=== PATIENT | female | born 1965 | race Caucasian/White ===

== ENCOUNTER 2018-03-22 08:57 | Outpatient (CLI) | payer BC, MEDICARE ==
[~2018-03-22] VITALS: Ht 165.1 cm; Wt 100.5 kg
[~2018-03-22 08:57] MED LIST: Oxycodone Hcl/Acetaminophen PO; PREG75CA PO; ROPI0.256 PO; TRAM50TA2 PO; TRAZ-144 PO
[2018-03-22] MEDS ORDERED: PREG75CA PO (09:10)
[2018-03-22] MEDS ORDERED: ROPI4TAB3 PO (09:10)
[2018-03-22 09:13] VITALS: BP 121/76
== END 2018-03-22 09:24 | disposition home or self-care (01) ==
LOC: PREOP 08:57
PROVIDERS: ATTEND Orthopaedic Surgery
DX: Z01.818 Encounter for other preprocedural examination (principal); Z11.2 Encounter for screening for other bacterial diseases
CPT/HCPCS: 87081

== ENCOUNTER 2018-03-29 09:15 | Day surgery (SDC) | payer BC, MEDICARE ==
[~2018-03-29] VITALS: Ht 165.1 cm; Wt 100.5 kg
[~2018-03-29 09:15] MED LIST changes: +ROPI4TAB3 PO
[2018-03-29 09:25] VITALS: BP 135/78
[2018-03-29] MEDS ORDERED: ceFAZolin 2 GM IV Premixed 50 ML IV ONE (09:30)
[2018-03-29] MEDS: LACTATED RINGERS 1,000 ML IV PRN ×2 (09:30→11:52)
--- OUTSIDE RECORDS SUMMARY | 2018-03-29 09:49 | XMS REPORT | Clinical Summary ---
Author Author [facility] Organization [facility] Address Unknown Phone Unavailable Care Team Providers Care Stock Layer Name Role Phone Daljit Perez MD Unavailable Kurt Navas MD PCP Source Comments Some departments are not documenting in the electronic medical record. If you do not see the information that you expected, contact Release of Information in the Health Information Management department at [phone] for further assistance in locating additional records.[facility] Allergies No Known Allergies Current Medications Prescription Sig. Disp. Refills Start End Date Status Date pregabalin (LYRICA) 25 mg Take 25 mg by mouth three Active capsule times daily. tapentadol ER (NUCYNTA Take 150 mg by mouth Active ER) 150 mg tablet every 12 hours naloxegol (MOVANTIK) 25 Take by mouth daily. Active mg tablet SULFAMETHOXAZOLE/TRIMETHO Take 100 mg by mouth. Active PRIM (BACTRIM PO) rOPINIRole (REQUIP) 2 mg Take 4 mg by mouth three Active tablet times daily. Active Problems Not on file Family History Relation Name Status Comments Father Social History Tobacco Use Types Packs/Day Years Used Date Never Smoker Alcohol Use Drinks/Week oz/Week Comments No 0 Standard 0.0 drinks or equivalent Sex Assigned at Date Recorded Not on file Last Filed Vital Signs Vital Sign Reading Time Taken Blood Pressure 128/79 03/10/2017 9:22 AM CDT Pulse 89 03/10/2017 9:22 AM CDT Temperature - - Respiratory Rate - - Oxygen Saturation 95% 03/10/2017 9:22 AM CDT Inhaled Oxygen - - Concentration Weight 95.3 kg (210 lb) 03/10/2017 9:22 AM CDT Height 165.1 cm (5' 5") 03/10/2017 9:22 AM CDT Body Mass Index 34.95 03/10/2017 9:22 AM CDT Plan of Treatment Health Maintenance Due Date Last Done Comments PHYSICAL (COMPREHENSIVE) 1974 EXAM PERTUSSIS VACCINE 1978 HIV SCREENING 1982 TETANUS VACCINE 1984 CERVICAL CANCER SCREENING 1997 BREAST CANCER SCREENING 2007 COLORECTAL CANCER 2017 SCREENING INFLUENZA VACCINE 07/12/2018 Results Not on filefrom Last 3 Months
--- OUTSIDE RECORDS SUMMARY | 2018-03-29 09:51 | XMS REPORT ---
Author Author Kurt Navas [facility] Address [address] [place] [id number] Care Team Providers Care Rail Car Driver Name Role Phone Kurt Navas PCP Unavailable Allergies and Adverse Reactions Name Reaction Notes NO KNOWN DRUG ALLERGIES Plan of Treatment Not available. Medications Active Name Start Date Estimated Completion Date SIG Comments Requip oral hydrocodone-acetaminophen 5-325 mg oral tablet 07/25/2015 take 1 tablet by oral route every 6 hours as needed for pain Questran 4 gram oral powder in packet 11/21/2015 take 1 packet (4 gram) dissolved in 2 to 6 ounces of water or noncarbonated beverage by oral route 2 times per day ropinirole 2 mg oral tablet 12/04/2015 05/02/2016 take 1-2 tablets by oral route once Lyrica 75 mg oral capsule 12/10/2015 06/07/2016 take 1 capsule (75 mg) by oral route 2 times per day for 30 days Name Start Date Expiration Date SIG Comments Levaquin 500 mg oral tablet 01/17/2010 01/31/2010 take 1 tablet (500 mg) by oral route once daily for 7 days Xanax 0.5 mg oral tablet 02/11/2010 take 1 tablet (0.5 mg) by oral route 3 times per day Medrol (Rashad) 4 mg oral tablets,dose pack 05/20/2010 05/30/2010 take as directed for 5 days Flexeril 10 mg oral tablet 05/20/2010 take 1 tablet by oral route 3 times a day as needed Neurontin 300 mg oral capsule 08/19/2010 09/18/2010 1-2 po qid Titrate as directed on calender Flexeril 10 mg oral tablet 08/19/2010 09/18/2010 1-2 po q hs Start at 10 mg increase by 5 mg q week up to 20 mg Medrol (Rashad) 4 mg oral tablets,dose pack 02/18/2011 02/28/2011 take as directed for 5 days Zithromax Z-Rashad 250 mg oral tablet 02/18/2011 02/28/2011 take 2 tablets (500 mg) by oral route once daily for 1 day then 1 tablet (250 mg) by oral route once daily for 4 days gabapentin 300 mg oral capsule 07/14/2011 08/13/2011 TAKE 1 OR 2 CAPSULES BY MOUTH FOUR TIMES DAILY . TITRATE DIRECTED ON CALDENER Dulcolax (bisacodyl) 10 mg rectal suppository 10/20/2011 insert 1 suppository (10 mg) by rectal route once daily as needed for constipation hydrocodone-acetaminophen 5-500 mg oral tablet 09/01/2012 09/11/2012 take 1 tablet by oral route every 4 hours as needed for pain for 10 days Bentyl 20 mg oral tablet 09/15/2012 09/25/2012 take 1 tablet (20 mg) by oral route 4 times per day - with meals and at bedtime Levbid 0.375 mg oral tablet extended release 12 hr 09/21/2012 10/05/2012 take 1 tablet (0.375 mg) by oral route every 12 hours for 14 days Zithromax Z-Rashad 250 mg oral tablet 12/09/2012 12/14/2012 take 2 tablets (500 mg ) by oral route once daily for 1 day then 1 tablet (250 mg) by oral route once daily for 4 days Medrol (Rashad) 4 mg oral tablets,dose pack 07/18/2013 07/30/2013 take as directed for 6 days Zithromax Z-Rashad 250 mg oral tablet 07/18/2013 07/28/2013 take 2 tablets (500 mg) by oral route once daily for 1 day then 1 tablet (250 mg) by oral route once daily for 4 days Levaquin 500 mg oral tablet 08/21/2014 08/28/2014 take 1 tablet (500 mg) by oral route once daily for 7 days ropinirole 0.25 mg oral tablet 10/06/2014 11/05/2014 take 1 tablet (0.25 mg) by oral route 1-3 hours before bedtime for 30 days hydrocodone-acetaminophen 5-325 mg oral tablet take 1 tablet by oral route every 4-6 hours as needed for pain Valium 5 mg oral tablet may take 1 tablet every 6hr prn Bactrim DS 800-160 mg oral tablet 12/12/2014 12/19/2014 take 1 tablet by oral route every 12 hours for 7 days prednisone 20 mg oral tablet 12/12/2014 12/19/2014 take 2 tablets (40 mg) by oral route once daily for 7 days cyclobenzaprine 10 mg oral tablet 05/30/2015 06/13/2015 take 1 tablet by oral route once a day (at bedtime) for 14 days azithromycin 250 mg oral tablet 09/07/2015 09/14/2015 take 2 tablets (500 mg ) by oral route once daily x 7 days promethazine-codeine 6.25-10 mg/5 mL oral syrup 09/07/2015 09/14/2015 take 5 milliliters by oral route every 4 hours as needed, not to exceed 30 mL in 24 hours for 7 days Discontinued Name Start Date Discontinued Date SIG Comments Neurontin 600 mg oral tablet 02/11/2010 take 1 tablet (600 mg) by oral route 3 times per day Zocor 20 mg oral tablet 08/13/2010 take 1 tablet (20 mg) by oral route once daily in the evening Tricor 145 mg oral tablet 08/13/2010 take 1 tablet (145 mg) by oral route once daily hydrocodone-acetaminophen 7.5-325 mg oral tablet 08/13/2010 take 1 tablet by oral route every 6 hours as needed for pain ibuprofen 200 mg oral capsule 07/25/2015 As needed Nexium 40 mg oral capsule,delayed release(DR/EC) 10/24/2010 08/11/2012 take 1 capsule (40 mg) by oral route once daily Percocet 10-325 mg oral tablet 10/28/2010 04/15/2011 take 1-2 tablets by oral route every 4 hours Amrix 15 mg oral capsule,extended release 24hr 03/13/2011 04/15/2011 TAKE 1 CAPSULE BY MOUTH DAILY Nucynta 100 mg oral tablet 04/15/2011 08/11/2012 take 1/2-1 tablet (100 mg) by oral route every 6 hours as needed prednisone 20 mg oral tablet 04/15/2011 08/11/2012 take 2 tablets by mouth x4 days then 1 tablet by mouth x4 days then 1/2 tablet by mouth x4 days. Lortab 10-500 mg oral tablet 04/22/2011 08/11/2012 take 1 tablet by oral route every 4 hours as needed for pain oxycodone-acetaminophen 7.5-325 mg oral tablet 08/11/2012 take 1 tablet by oral route every 4 hours as needed for pain Bactrim DS 800-160 mg oral tablet 08/11/2012 take 2 tablets by oral route Keflex 500 mg oral capsule 08/11/2012 take 1 capsule (500 mg) by oral route every 12 hours Lidoderm 5 % topical adhesive patch,medicated 12/12/2014 apply 1 patch by transdermal route once daily (May wear up to 12hours.) Amitiza 8 mcg oral capsule 10/20/2011 08/11/2012 take 1 capsule by oral route 2 times a day Reglan 10 mg oral tablet 08/05/2012 08/11/2012 take 1 tablet (10 mg) by oral route 4 times per day 30 minutes before meals and at bedtime Mobic Oral 15 mg Oral tablet 12/12/2014 take 1 tablet (15 mg) by oral route once daily prn Flagyl 500 mg oral tablet 09/15/2012 09/28/2012 take 1 tablet (500 mg) by oral route 3 times per day Lomotil Oral 2.5-0.025 mg Oral tablet 10/18/2012 one tab q 4 hrs prednisone Oral 11/01/2012 take as directed Symbicort 160-4.5 mcg/actuation inhalation HFA aerosol inhaler 07/18/20132014 inhale 2 puffs by inhalation route 2 times per day in the morning and evening promethazine-codeine 6.25-10 mg/5 mL oral syrup 07/18/2013 04/10/2014 take 5 milliliters by oral route every 6 hours as needed, not to exceed 30 mL in 24 hours Percocet 5-325 mg oral tablet 11/28/2013 12/12/2014 take 1 tablet by oral route every 6 hours ropinirole 1 mg oral tablet 03/29/2015 05/04/2015 take 1 tablet (1 mg) by oral route 1-3 hours before bedtime for 90 days Neupro 2 mg/24 hour transdermal patch 24 hour 05/04/2015 07/25/2015 apply 1 patch (2 mg) by transdermal route once daily . Do not apply to same area more than once every 14 days. for 30 days Problem List Description Status Onset Heart disease Active Hypertension Active Vital Signs Date Time BP-Sys(mm[Hg] BP-Sarah(mm[Hg]) HR(bpm) RR(rpm) Temp WT HT HC BMI BSA BMI Percentile O2 Sat(%) 12/04/2015 3:49:00 PM 128 mmHg 86 mmHg 104 bpm 18 rpm 98.7 F 211 lbs 65 in 35.11 kg/m2 2.10 m2 94 % 11/21/2015 10:55:00 AM 132 mmHg 78 mmHg 88 bpm 18 rpm 99.3 F 211 lbs 65 in 35.1119 kg/m 2.0951 m 85 % 09/07/2015 5:19:00 PM 130 mmHg 80 mmHg 98 bpm 20 rpm 98.7 F 211 lbs 65 in 35.11 kg/m2 2.10 m2 98 % 07/25/2015 2:34:00 PM 138 mmHg 78 mmHg 91 bpm 18 rpm 97.3 F 213.25 lbs 65 in 35.4863 kg/m 2.1062 m 98 % 05/29/2015 9:19:00 AM 140 mmHg 80 mmHg 78 bpm 18 rpm 96.7 F 208 lbs 65 in 34.61 kg/m2 2.08 m2 98 % 03/29/2015 3:18:00 PM 110 mmHg 82 mmHg 89 bpm 18 rpm 97.9 F 209 lbs 65 in 34.7791 kg/m 2.0851 m 95 % 12/12/2014 9:47:00 AM 124 mmHg 78 mmHg 96 bpm 18 rpm 98.8 F 213 lbs 65 in 35.44 kg/m2 2.10 m2 08/21/2014 9:52:00 AM 128 mmHg 62 mmHg 113 bpm 18 rpm 99.2 F 222.375 lbs 65 in 37.0048 kg/m 2.1508 m 97 % 08/08/2014 10:48:00 AM 128 mmHg 72 mmHg 88 bpm 18 rpm 97.6 F 222 lbs 65 in 36.94 kg/m2 2.15 m2 04/24/2014 10:32:00 AM 124 mmHg 72 mmHg 80 bpm 18 rpm 98.4 F 216 lbs 65 in 35.9439 kg/m 2.1197 m 04/10/2014 9:30:00 AM 118 mmHg 72 mmHg 88 bpm 18 rpm 98.2 F 217 lbs 65 in 36.11 kg/m2 2.12 m2 11/28/2013 10:02:00 AM 108 mmHg 66 mmHg 94 bpm 18 rpm 98.1 F 211.25 lbs 65 in 35.1535 kg/m 2.0963 m 98 % 07/18/2013 8:55:00 AM 130 mmHg 70 mmHg 90 bpm 20 rpm 98.4 F 205 lbs 65 in 34.11 kg/m2 2.07 m2 98 % 03/01/2013 8:36:00 AM 128 mmHg 68 mmHg 68 bpm 18 rpm 98.7 F 203.25 lbs 65 in 33.8222 kg/m 2.0562 m 11/01/2012 1:31:00 PM 110 mmHg 60 mmHg 92 bpm 18 rpm 96.8 F 206 lbs 65 in 34.28 kg/m2 2.07 m2 98 % 10/18/2012 2:25:00 PM 120 mmHg 70 mmHg 76 bpm 18 rpm 97 F 205.375 lbs 65 in 34.1758 kg/m 2.067 m 98 % 09/28/2012 1:31:00 PM 110 mmHg 70 mmHg 80 bpm 18 rpm 97.5 F 205.375 lbs 65 in 34.18 kg/m2 2.07 m2 99 % 09/15/2012 11:00:00 AM 140 mmHg 70 mmHg 75 bpm 18 rpm 97.4 F 204.25 lbs 65 in 33.9886 kg/m 2.0613 m 99 % 09/08/2012 10:04:00 AM 110 mmHg 70 mmHg 75 bpm 18 rpm 96.8 F 203 lbs 65 in 33.78 kg/m2 2.05 m2 97 % 09/01/2012 10:24:00 AM 104 mmHg 62 mmHg 88 bpm 16 rpm 97.5 F 205 lbs 65 in 34.1134 kg/m 2.0651 m 08/17/2012 1:17:00 PM 120 mmHg 70 mmHg 78 bpm 18 rpm 96.9 F 206 lbs 65 in 34.28 kg/m2 2.07 m2 98 % 08/11/2012 10:24:00 AM 110 mmHg 80 mmHg 99 bpm 18 rpm 96.5 F 206 lbs 65 in 34.2798 kg/m 2.0701 m 97 % 08/09/2012 9:16:00 AM 146 mmHg 84 mmHg 88 bpm 20 rpm 98.4 F 206 lbs 65 in 34.28 kg/m2 2.07 m2 08/05/2012 3:20:00 PM 120 mmHg 78 mmHg 80 bpm 18 rpm 98.4 F 207 lbs 65 in 34.4462 kg/m 2.0751 m 07/29/2012 1:37:00 PM 128 mmHg 82 mmHg 80 bpm 18 rpm 98.2 F 205 lbs 65 in 34.11 kg/m2 2.07 m2 10/20/2011 10:46:00 AM 128 mmHg 80 mmHg 118 bpm 18 rpm 98 F 207 lbs 65 in 34.4462 kg/m 2.0751 m 04/22/2011 9:16:00 AM 126 mmHg 80 mmHg 80 bpm 20 rpm 98.1 F 212 lbs 65 in 35.28 kg/m2 2.10 m2 04/15/2011 8:52:00 AM 130 mmHg 72 mmHg 88 bpm 20 rpm 97.2 F 212 lbs 02/18/2011 9:06:00 AM 132 mmHg 78 mmHg 92 bpm 20 rpm 97.6 F 215 lbs 12/05/2010 8:04:00 AM 118 mmHg 78 mmHg 88 bpm 98 F 215 lbs 11/04/2010 9:19:00 AM 122 mmHg 78 mmHg 88 bpm 96.3 F 214.562 lbs 10/28/2010 10:07:00 AM 74 mmHg 20 rpm 99.8 F 218 lbs 10/24/2010 10:29:00 AM 128 mmHg 80 mmHg 106 bpm 20 rpm 98.6 F 215.25 lbs 94 % 10/01/2010 8:30:00 AM 112 mmHg 70 mmHg 88 bpm 16 rpm 10/01/2010 8:07:00 AM 112 mmHg 78 mmHg 88 bpm 98 F 212 lbs 08/19/2010 8:44:00 AM 118 mmHg 78 mmHg 80 bpm 16 rpm 97.2 F 209.187 lbs 07/09/2010 2:52:00 PM 124 mmHg 78 mmHg 92 bpm 20 rpm 98.9 F 208 lbs 05/20/2010 2:04:00 PM 122 mmHg 80 mmHg 88 bpm 96.2 F 206 lbs 02/11/2010 2:00:00 PM 150 mmHg 88 mmHg 84 bpm 20 rpm 98.3 F 212 lbs 01/17/2010 9:10:00 AM 108 mmHg 78 mmHg 76 bpm 20 rpm 97.5 F 212 lbs Social History Name Description Comments Housing Lives in a house in [place], [place] Lives with spouse disabeled High school graduate Grown Children Alcohol Current - status unknown Denies illicit substance abuse Tobacco Former smoker Did not serve in History of Procedures Date Ordered Description Order Status 07/25/2015 12:00 AM RADEX SPINE LUMBOSACRAL 2/3 VIEWS Returned 09/07/2015 12:00 AM THER/PROPH/DIAG INJ SC/IM Reviewed 09/07/2015 12:00 AM Decadron, Per 1 Mg [facility]# [address]-75 Reviewed 09/07/2015 12:00 AM Depo-Medrol 40mg Reviewed 10/20/2011 12:00 AM Phenergan 50 Mg Im [id number] Reviewed 08/05/2012 12:00 AM X-RAY EXAM OF ABDOMEN Reviewed 08/09/2012 12:00 AM COMPLETE CBC W/AUTO DIFF WBC Reviewed 08/09/2012 12:00 AM COMPREHEN METABOLIC PANEL Reviewed 08/09/2012 12:00 AM ASSAY OF AMYLASE Reviewed 08/09/2012 12:00 AM ECHO EXAM OF ABDOMEN Reviewed 08/11/2012 12:[address] ABDOMEN W/O & W/DYE Reviewed 08/11/2012 12:[address] PELVIS W/O & W/DYE Reviewed 09/21/2012 12:00 AM CULTURE OTHR SPECIMN AEROBIC Returned 02/11/2010 12:00 AM COMPLETE CBC W/AUTO DIFF WBC Reviewed 02/11/2010 12:00 AM COMPREHEN METABOLIC PANEL Reviewed 02/11/2010 12:00 AM LIPID PANEL Reviewed 11/28/2013 12:00 AM X-RAY EXAM OF ANKLE Reviewed 10/01/2010 12:00 AM DRAIN/INJ JOINT/BURSA W/O US Reviewed 10/01/2010 12:00 AM Kenalog 40 Mg Im-[facility]#9586-6079-22 Lot #[id number] Exp 2011 Reviewed 10/01/2010 12:00 AM HOT OR COLD PACKS THERAPY Reviewed 10/01/2010 12:00 AM Lidocaine Injection [facility] [address]-90 , Lot # [id number] Exp 03/12/2012 Reviewed 10/01/2010 12:00 AM DRAIN/INJ JOINT/BURSA W/O US Reviewed 04/10/2014 12:00 AM Kenalog 40 Mg Im/C'abida Reviewed 04/10/2014 12:00 AM Rocephin 1 gram [facility]#5806-9493-50 Reviewed 10/24/2010 12:00 AM COMPLETE CBC W/AUTO DIFF WBC Reviewed 10/24/2010 12:00 AM COMPREHEN METABOLIC PANEL Reviewed 10/24/2010 12:00 AM LIPID PANEL Reviewed 10/28/2010 12:00 AM X-RAY EXAM OF HIP Reviewed 12/05/2010 12:00 AM X-RAY EXAM OF HIP Reviewed 12/05/2010 12:00 AM ROUTINE VENIPUNCTURE Reviewed 12/05/2010 12:00 AM COMPLETE CBC W/AUTO DIFF WBC Reviewed 12/05/2010 12:00 AM COMPREHEN METABOLIC PANEL Reviewed 12/05/2010 12:00 AM LIPID PANEL Reviewed 08/08/2014 12:00 AM X-RAY EXAM OF HAND Reviewed 04/22/2011 12:00 AM X-RAY EXAM KNEE 4 OR MORE Reviewed 05/29/2015 12:00 AM COMPLETE CBC W/AUTO DIFF WBC Returned 05/29/2015 12:00 AM URNLS DIP STICK/TABLET RGNT AUTO W/O MICROSCOPY Returned Results Summary Data and Description Results 02/25/2010 11:25 AM VANC PEAK 28.70 ug/mL 02/25/2010 7:10 PM VANC TROUGH 9.10 mg/L 03/18/2010 8:49 AM TRIGLYCERIDES 272.0 mg/dLCHOLESTEROL 166.0 mg/dLHDL 29.0 mg/ dLLDL (CALC) 83.0 mg/dLGLUCOSE 100.0 mg/dLSODIUM 140.0 mmol/LPOTASSIUM 4.30 mmol /LCHLORIDE 105.0 mmol/LCO2 25.0 mmol/LBUN 12.0 mg/dLCREATININE 0.80 mg/dLSGOT/ AST 19.0 IU/LSGPT/ALT 21.0 IU/LALK PHOS 91.0 IU/LTOTAL PROTEIN 7.0 g/dLALBUMIN 4.30 g/dLTOTAL BILI 0.30 mg/dLCALCIUM 9.30 mg/dLeGFR >60 mL/min/1.73 m2WBC 7.7 RBC 4.39 HGB 13.60 g/dLHCT 41.40 %MCV 94.0 fLMCH 31.0 pgMCHC 32.90 g/dLRDW CV 13.20 %MPV 9.60 fLPLT 298 %NEUT 58.40 %%LYMP 26.30 %%MONO 13.20 %%EOS 1.30 %% BASO 0.80 %#NEUT 4.51 #LYMP 2.03 #MONO 1.02 #EOS 0.10 #BASO 0.06 WBC 7.6 RBC 4.34 HGB 13.60 g/dLHCT 41.0 %MCV 95.0 fLMCH 31.30 pgMCHC 33.20 g/dLRDW CV 13.20 %MPV 9.50 fLPLT 276 %NEUT 59.0 %%LYMP 27.50 %%MONO 11.40 %%EOS 1.30 %%BASO 0.80 %#NEUT 4.51 #LYMP 2.10 #MONO 0.87 #EOS 0.10 #BASO 0.06 10/01/2010 8:15 AM Amount used 80 Joint/Area RT knee 12/05/2010 8:50 AM TRIGLYCERIDES 385.0 mg/dLCHOLESTEROL 239.0 mg/dLHDL 29.0 mg/ dLLDL (CALC) 133.0 mg/dLWBC 10.5 RBC 4.69 HGB 14.80 g/dLHCT 44.0 %MCV 94.0 fLMCH 31.60 pgMCHC 33.60 g/dLRDW CV 12.80 %MPV 10.30 fLPLT 274 %NEUT 63.20 %% LYMP 27.20 %%MONO 7.90 %%EOS 1.10 %%BASO 0.60 %#NEUT 6.63 #LYMP 2.85 #MONO 0.83 #EOS 0.12 #BASO 0.06 GLUCOSE 100.0 mg/dLSODIUM 138.0 mmol/LPOTASSIUM 4.30 mmol/ LCHLORIDE 103.0 mmol/LCO2 23.0 mmol/LBUN 14.0 mg/dLCREATININE 0.80 mg/dLSGOT/ AST 13.0 IU/LSGPT/ALT 11.0 IU/LALK PHOS 126.0 IU/LTOTAL PROTEIN 6.80 g/ dLALBUMIN 4.40 g/dLTOTAL BILI 0.30 mg/dLCALCIUM 9.20 mg/dLeGFR >60 mL/min/1.73 m2 08/09/2012 10:00 AM GLUCOSE 100.0 mg/dLSODIUM 142.0 mmol/LPOTASSIUM 5.40 mmol/ LCHLORIDE 108.0 mmol/LCO2 26.0 mmol/LBUN 10.0 mg/dLCREATININE 0.90 mg/dLSGOT/ AST 21.0 IU/LSGPT/ALT 21.0 IU/LALK PHOS 121.0 IU/LTOTAL PROTEIN 6.70 g/ dLALBUMIN 4.30 g/dLTOTAL BILI 0.30 mg/dLCALCIUM 9.70 mg/dLeGFR 60 AMYLASE 44 IU/ LWBC 9.0 RBC 4.54 HGB 14.20 g/dLHCT 42.10 %MCV 93.0 fLMCH 31.30 pgMCHC 33.70 g/ dLRDW CV 13.20 %MPV 10.10 fLPLT 277 %NEUT 57.60 %%LYMP 33.10 %%MONO 6.30 %%EOS 2.30 %%BASO 0.70 %#NEUT 5.20 #LYMP 2.99 #MONO 0.57 #EOS 0.21 #BASO 0.06 09/22/2012 8:52 AM WBC STOOL NO WBC SEEN C DIFFICILE NEGATIVE -- C DIFF TOXIN NOT DETECTED 10/07/2012 9:30 AM C DIFFICILE NEGATIVE -- C DIFF TOXIN NOT DETECTED 05/29/2015 9:52 AM COLOR YELLOW APPEARANCE CLEAR SPEC GRAV <=1.005 pH 6.0 PROTEIN NEGATIVE GLUCOSE NEGATIVE mg/dLKETONE NEGATIVE BILIRUBIN NEGATIVE BLOOD NEGATIVE NITRITE NEGATIVE LEUK SCREEN NEGATIVE WBC 9.6 RBC 4.80 HGB 15.50 g/ dLHCT 46.30 %MCV 97.0 fLMCH 32.30 pgMCHC 33.50 g/dLRDW CV 13.0 %MPV 10.10 fLPLT 266 %NEUT 58.70 %%LYMP 32.30 %%MONO 7.0 %%EOS 1.40 %%BASO 0.60 %#NEUT 5.62 # LYMP 3.09 #MONO 0.67 #EOS 0.13 #BASO 0.06 History Of Immunizations Not available. History of Past Illness Name Date of Onset Comments Hypertension Heart disease degenerative disc disease Hyperlipidemia, unspecified Jan 17 2010 9:12AM Otitis Media, Acute Jan 17 2010 9:12AM Hyperlipidemia, unspecified Feb 11 2010 2:07PM Depression and anxiety Feb 11 2010 2:07PM Insomnia, unspecified Feb 11 2010 2:07PM Osteoarthritis May 20 2010 2:07PM Low Back Pain Jul 09 2010 2:56PM Chronic Right Thoracic or Lumbosacral Radiculopathy s/p 8 back surgeries--with abnormal sensation and motor function RLE Aug 19 2010 8:45AM Paresthesia RLE >>LLE Aug 19 2010 8:45AM Muscle Spasm--Right calf Aug 19 2010 8:45AM Muscle weakness (generalized) RLE Aug 19 2010 8:45AM Right Foot Drop Aug 19 2010 8:45AM Gait Abnormality--due to radiculopathy and RLE weakness. Aug 19 2010 8:45AM Chronic Right Thoracic or Lumbosacral Radiculopathy s/p 8 back surgeries--with abnormal sensation and motor function RLE Oct 01 2010 8:08AM Gait Abnormality--due to radiculopathy and RLE weakness. Oct 01 2010 8:08AM Right knee pain Oct 01 2010 8:08AM Osteoarthrosis, lower leg Oct 01 2010 8:32AM Right knee pain Oct 01 2010 8:32AM Esophageal Reflux Oct 24 2010 10:35AM Hyperlipidemia, Mixed Oct 24 2010 10:35AM Pain in joint; Right Hip Oct 28 2010 10:09AM Chronic Right Thoracic or Lumbosacral Radiculopathy s/p 8 back surgeries--with abnormal sensation and motor function RLE Nov 04 2010 8:00AM Gait Abnormality--due to radiculopathy and RLE weakness. Nov 04 2010 8:00AM Right knee pain--improved after injection Nov 04 2010 8:00AM Chronic Right Thoracic or Lumbosacral Radiculopathy s/p 8 back surgeries--with abnormal sensation and motor function RLE Dec 05 2010 8:07AM Gait Abnormality--due to radiculopathy and RLE weakness. Dec 05 2010 8:07AM Coronary Artery Disease Dec 05 2010 8:47AM Hypertension Dec 05 2010 8:47AM Hypercholesterolemia Dec 05 2010 8:47AM Muscle, Ligament, And Fascia Disorder--snapping hip on the right. Dec 05 2010 8:07AM Upper Respiratory Infection Feb 18 2011 9:09AM Right knee pain Apr 15 2011 8:54AM Pain in joint; right knee Apr 22 2011 9:22AM Abdominal Pain Oct 20 2011 10:49AM Gastroenteritis, Noninfectious Oct 20 2011 12:03PM Gastroenteritis, Viral Jul 29 2012 1:43PM Abdominal Pain Aug 05 2012 3:23PM Abdominal Pain Aug 09 2012 9:20AM Abdominal Pain, Right Upper Quadrant Aug 11 2012 11:05AM Incisional Hernia: No Obstruction Or Gangrene Aug 11 2012 10:32AM Abdominal pain; epigastric Aug 11 2012 10:32AM Hernia, Incisional Aug 17 2012 1:20PM Postoperative Follow-Up Visit Sep 01 2012 10:29AM Constipation Sep 01 2012 10:29AM Postoperative Follow-Up Visit Sep 08 2012 10:09AM Diarrhea of presumed infectious origin Sep 15 2012 11:04AM Diarrhea Sep 21 2012 11:44AM Colon Cancer Screening Sep 28 2012 1:37PM Diarrhea Sep 28 2012 1:37PM Follow-up examination after endoscopy Oct 18 2012 2:31PM Diarrhea Oct 18 2012 2:31PM Colitis Oct 18 2012 2:31PM Irritable bowel syndrome Nov 01 2012 1:36PM Restless legs syndrome (RLS) Mar 01 2013 8:38AM Bronchitis, Acute Jul 18 2013 8:58AM Pain in joint; left ankle Nov 28 2013 10:08AM Sinusitis Apr 10 2014 9:33AM RLS (restless legs syndrome) Apr 24 2014 10:37AM Hand trauma Aug 08 2014 10:54AM Sinusitis Aug 21 2014 9:54AM Sinusitis Dec 12 2014 9:53AM RLS (restless legs syndrome) Dec 12 2014 9:53AM RLS (restless legs syndrome) Mar 29 2015 3:20PM Back pain May 29 2015 9:21AM Fall, initial encounter Jul 25 2015 2:36PM Right-sided low back pain without sciatica Jul 25 2015 2:36PM Bronchitis, Acute Sep 07 2015 5:20PM Cough Sep 07 2015 5:20PM Sinusitis, Acute Sep 07 2015 5:20PM Wheezing Sep 07 2015 5:20PM Gastroenteritis Nov 21 2015 10:59AM RLS (restless legs syndrome) Dec 04 2015 3:53PM Payers Insurance Name Company Name Plan Name Plan Number Policy Number Policy Group Number Start Date [facility] [id number] Saturday, 2009 Medicare Part A Medicare A Secondary [id number] N/A Medicare Part A Medicare Part A [id number] Thursday, 2011 Medicare Part B Medicare Secondary [id number] N/A History of Encounters Visit Date Visit Type Provider 12/04/2015 Office visit Kurt Navas MD 11/21/2015 Office visit Kurt Navas MD 09/07/2015 Office visit Charlotte Gilbert DRILLING FIELD OPERATOR 07/25/2015 Office visit Trina Deluna DRILLING FIELD OPERATOR 05/29/2015 Office visit Bernardino De La Garza DRILLING FIELD OPERATOR 03/29/2015 Office visit Kurt Navas MD 12/12/2014 Office visit Kurt Navas MD 08/21/2014 Office visit Kurt Navas MD 08/08/2014 Office visit Kurt Navas MD 04/24/2014 Office visit Kurt Navas MD 04/10/2014 Office visit Kurt Navas MD 11/28/2013 Office visit Kurt Navas MD 07/18/2013 Office visit Kurt Navas MD 03/01/2013 Office visit Kurt Navas MD 11/01/2012 Office visit Jin Duran MD 10/18/2012 Office visit Jin Duran MD 10/07/2012 Hospital Jin Duran MD 09/28/2012 Office visit Jin Duran MD 09/15/2012 Office visit Jin Duran MD 09/08/2012 Office visit Jin Duran MD 09/01/2012 Office visit Jin Duran MD 08/25/2012 Hospital Jin Duran MD 08/17/2012 Office visit Jin Duran MD 08/11/2012 Office visit Jin Duran MD 08/09/2012 Office visit Kutr Navas MD 08/05/2012 Office visit Kurt Navas MD 07/29/2012 Office visit Kurt Navas MD 01/05/2012 Hospital Thao Burkett MD 10/20/2011 Office visit Kurt Navas MD 05/12/2011 Hospital Thao Burkett MD 04/22/2011 Office visit Kurt Navas MD 04/15/2011 Office visit Trina Deluna APRN 02/18/2011 Office visit Kurt Navas MD 12/05/2010 Office visit Sandra Leal MD 11/04/2010 Office visit Sandra Leal MD 10/28/2010 Office visit Kurt Navas MD 10/24/2010 Office visit Kurt Navas MD 10/01/2010 Office visit Sandra Leal MD 08/19/2010 Office visit Sandra Leal MD 07/09/2010 Office visit Kurt Navas MD 05/20/2010 Office visit Kurt Navas MD 02/11/2010 Office visit Kurt Navas MD 01/17/2010 Office visit Kurt Navas MD
--- OUTSIDE RECORDS SUMMARY | 2018-03-29 09:52 | XMS REPORT ---
Author Author Kurt Navas [facility] Address [address] [place] [phone] Care Team Providers Care Ticker Maintainer Name Role Phone Kurt Navas PCP Unavailable Allergies and Adverse Reactions Name Reaction Notes NO KNOWN DRUG ALLERGIES Plan of Treatment Not available. Medications Active Name Start Date Estimated Completion Date SIG Comments Ibuprofen Oral Capsule 200 mg As needed Neupro transdermal patch 24 hour 2 mg/24 hour 05/04/2015 01/29/2016 apply 1 patch (2 mg) by transdermal route once daily . Do not apply to same area more than once every 14 days. for 30 days Lyrica oral capsule 75 mg 05/30/2015 11/26/2015 take 1 capsule (75 mg) by oral route 2 times per day for 30 days cyclobenzaprine 10 mg oral tablet 05/30/2015 06/13/2015 take 1 tablet by oral route once a day (at bedtime) for 14 days Name Start Date Expiration Date SIG Comments Levaquin Oral Tablet 500 mg 01/17/2010 01/31/2010 take 1 tablet (500 mg) by oral route once daily for 7 days Xanax Oral Tablet 0.5 mg 02/11/2010 take 1 tablet (0.5 mg) by oral route 3 times per day Medrol (Rashad) Oral Tablets, Dose Pack 4 mg 05/20/2010 05/30/2010 take as directed for 5 days Flexeril Oral Tablet 10 mg 05/20/2010 take 1 tablet by oral route 3 times a day as needed Neurontin Oral Capsule 300 mg 08/19/2010 09/18/2010 1-2 po qid Titrate as directed on calender Flexeril Oral Tablet 10 mg 08/19/2010 09/18/2010 1-2 po q hs Start at 10 mg increase by 5 mg q week up to 20 mg Medrol (Rashad) Oral Tablets, Dose Pack 4 mg 02/18/2011 02/28/2011 take as directed for 5 days Zithromax Z-Rashad Oral Tablet 250 mg 02/18/2011 02/28/2011 take 2 tablets (500 mg) by oral route once daily for 1 day then 1 tablet (250 mg) by oral route once daily for 4 days gabapentin Oral Capsule 300 mg 07/14/2011 08/13/2011 TAKE 1 OR 2 CAPSULES BY MOUTH FOUR TIMES DAILY . TITRATE DIRECTED ON CALDENER Dulcolax Rectal Suppository 10 mg 10/20/2011 insert 1 suppository (10 mg) by rectal route once daily as needed for constipation hydrocodone-acetaminophen Oral tablet 5-500 mg 09/01/2012 09/11/2012 take 1 tablet by oral route every 4 hours as needed for pain for 10 days Bentyl Oral tablet 20 mg 09/15/2012 09/25/2012 take 1 tablet (20 mg) by oral route 4 times per day - with meals and at bedtime Levbid Oral tablet extended release 12 hr 0.375 mg 09/21/2012 10/05/2012 take 1 tablet (0.375 mg) by oral route every 12 hours for 14 days Zithromax Z-Rashad Oral tablet 250 mg 12/09/2012 12/14/2012 take 2 tablets (500 mg ) by oral route once daily for 1 day then 1 tablet (250 mg) by oral route once daily for 4 days Medrol (Rashad) Oral tablets,dose pack 4 mg 07/18/2013 07/30/2013 take as directed for 6 days Zithromax Z-Rashad Oral tablet 250 mg 07/18/2013 07/28/2013 take 2 tablets (500 mg) by oral route once daily for 1 day then 1 tablet (250 mg) by oral route once daily for 4 days Levaquin oral tablet 500 mg 08/21/2014 08/28/2014 take 1 tablet (500 mg) by oral route once daily for 7 days ropinirole oral tablet 0.25 mg 10/06/2014 11/05/2014 take 1 tablet (0.25 mg) by oral route 1-3 hours before bedtime for 30 days hydrocodone-acetaminophen oral tablet 5-325 mg take 1 tablet by oral route every 4-6 hours as needed for pain Valium oral tablet 5 mg may take 1 tablet every 6hr prn Bactrim DS oral tablet 800-160 mg 12/12/2014 12/19/2014 take 1 tablet by oral route every 12 hours for 7 days prednisone oral tablet 20 mg 12/12/2014 12/19/2014 take 2 tablets (40 mg) by oral route once daily for 7 days Discontinued Name Start Date Discontinued Date SIG Comments Neurontin Oral Tablet 600 mg 02/11/2010 take 1 tablet (600 mg) by oral route 3 times per day Zocor Oral Tablet 20 mg 08/13/2010 take 1 tablet (20 mg) by oral route once daily in the evening Tricor Oral Tablet 145 mg 08/13/2010 take 1 tablet (145 mg) by oral route once daily Hydrocodone-Acetaminophen Oral Tablet 7.5-325 mg 08/13/2010 take 1 tablet by oral route every 6 hours as needed for pain Nexium Oral Capsule, Delayed Release(E.C.) 40 mg 10/24/2010 08/11/2012 take 1 capsule (40 mg) by oral route once daily Percocet Oral Tablet 10-325 mg 10/28/2010 04/15/2011 take 1-2 tablets by oral route every 4 hours Amrix Oral Capsule, Ext Release 24 hr 15 mg 03/13/2011 04/15/2011 TAKE 1 CAPSULE BY MOUTH DAILY Nucynta Oral Tablet 100 mg 04/15/2011 08/11/2012 take 1/2-1 tablet (100 mg) by oral route every 6 hours as needed prednisone Oral Tablet 20 mg 04/15/2011 08/11/2012 take 2 tablets by mouth x4 days then 1 tablet by mouth x4 days then 1/2 tablet by mouth x4 days. Lortab Oral Tablet 10-500 mg 04/22/2011 08/11/2012 take 1 tablet by oral route every 4 hours as needed for pain oxycodone-acetaminophen Oral Tablet 7.5-325 mg 08/11/2012 take 1 tablet by oral route every 4 hours as needed for pain Bactrim DS Oral Tablet 800-160 mg 08/11/2012 take 2 tablets by oral route Keflex Oral Capsule 500 mg 08/11/2012 take 1 capsule (500 mg) by oral route every 12 hours Lidoderm Topical Adhesive Patch, Medicated 5 %(700 mg/patch) 12/12/2014 apply 1 patch by transdermal route once daily (May wear up to 12hours.) Amitiza Oral Capsule 8 mcg 10/20/2011 08/11/2012 take 1 capsule by oral route 2 times a day Reglan Oral tablet 10 mg 08/05/2012 08/11/2012 take 1 tablet (10 mg) by oral route 4 times per day 30 minutes before meals and at bedtime Mobic Oral 15 mg Oral tablet 12/12/2014 take 1 tablet (15 mg) by oral route once daily prn Flagyl Oral tablet 500 mg 09/15/2012 09/28/2012 take 1 tablet (500 mg) by oral route 3 times per day Lomotil Oral 2.5-0.025 mg Oral tablet 10/18/2012 one tab q 4 hrs prednisone Oral 11/01/2012 take as directed Symbicort Inhalation HFA Aerosol Inhaler 160-4.5 mcg/actuation 07/18/20132014 inhale 2 puffs by inhalation route 2 times per day in the morning and evening promethazine-codeine Oral Syrup 6.25-10 mg/5 mL 07/18/2013 04/10/2014 take 5 milliliters by oral route every 6 hours as needed, not to exceed 30 mL in 24 hours Percocet oral tablet 5-325 mg 11/28/2013 12/12/2014 take 1 tablet by oral route every 6 hours ropinirole oral tablet 1 mg 03/29/2015 05/04/2015 take 1 tablet (1 mg) by oral route 1-3 hours before bedtime for 90 days Problem List Description Status Onset Heart disease Active Hypertension Active Vital Signs Date Time BP-Sys(mm[Hg] BP-Sarah(mm[Hg]) HR(bpm) RR(rpm) Temp WT HT HC BMI BSA BMI Percentile O2 Sat(%) 05/29/2015 9:19:00 AM 140 mmHg 80 mmHg [...] Comments Housing Lives in a house in [place], [place] Lives with spouse disabeled High school graduate Grown Children Alcohol Current - status unknown Denies illicit substance abuse Tobacco Former smoker Did not serve in History of Procedures Date Ordered Description Order Status 10/20/2011 12:00 AM Phenergan 50 Mg Im [id number] Reviewed 10/20/2011 12:00 AM Phenergan 50 Mg Im [id number] Ordered 07/29/2012 12:00 AM Phenergan, Up to 50 Mg [facility]#5841-8156-41 Ordered 08/05/2012 12:00 AM X-RAY EXAM OF ABDOMEN [...] Reviewed 10/01/2010 12:00 AM Kenalog 40 Mg Im-[facility]#6762-6845-33 Lot #[id number] Exp 2011 Reviewed 10/01/2010 12:00 AM HOT OR COLD PACKS THERAPY Reviewed 10/01/2010 12:00 AM Lidocaine Injection [facility] [address]-73 , Lot # [id number] Exp 03/12/2012 Reviewed 10/01/2010 12:00 AM DRAIN/INJ JOINT/BURSA W/O US Reviewed 04/10/2014 12:00 AM Kenalog 40 Mg Im/C'abida Reviewed 04/10/2014 12:00 AM Rocephin 1 gram [facility]#8922-7070-32 Reviewed 10/24/2010 12:00 AM COMPLETE CBC W/AUTO [...] 3:20PM Back pain May 29 2015 9:21AM Payers Insurance Name Company Name Plan Name Plan Number Policy Number Policy Group Number [id number] Saturday, 2009 Medicare Part A Medicare A Secondary [id number] N/A Medicare Part A Medicare Part A [id number] Thursday, 2011 Medicare Part B Medicare Secondary [id number] N/A History of Encounters Visit Date Visit Type Provider 05/29/2015 Office visit Bernardino De La Garza APRN 03/29/2015 Office visit Kurt Navas MD 12/12/2014 Office visit Kurt Navas MD 08/21/2014 Office visit Kurt Navas MD 08/08/2014 Office visit Kurt Navas MD 04/24/2014 Office visit Kurt Navas MD 04/10/2014 Office visit Kurt Navas MD 11/28/2013 Office visit Kurt Navas MD 07/18/2013 Office visit Kurt Nvaas MD 03/01/2013 Office visit Kurt Navas MD [...] visit Jin Duran MD 08/09/2012 Office visit Kurt Navas MD 08/05/2012 Office visit Kurt Navas MD 07/29/2012 Office visit Kurt Navas MD 01/05/2012 Hospital Thao Burkett MD 10/20/2011 Office visit Kurt Navas MD 05/12/2011 [facility] Thao Burkett MD 04/22/2011 Office visit Kurt Navas MD 04/15/2011 Office visit Trina Deluna APRN 02/18/2011 Office visit Kurt Navas MD 12/05/2010 Office visit Sandra Leal MD 11/04/2010 Office visit Sandra Lael MD 10/28/2010 Office visit Kurt Navas MD 10/24/2010 Office visit Krut Navas MD 10/01/2010 Office visit Sandra Leal MD 08/19/2010 Office visit Sandra Leal MD 07/09/2010 Office visit Kurt Navas MD 05/20/2010 Office visit Kurt Navas MD 02/11/2010 Office visit Kurt Navas MD 01/17/2010 Office visit Kurt Navas MD
--- OUTSIDE RECORDS SUMMARY | 2018-03-29 09:53 | XMS REPORT ---
Author Author Kurt Navas [facility] Address [address] [place] [phone] Care Team Providers Care Senior Software Engineer Analytics Name Role Phone Kurt Navas PCP Unavailable Kurt Navas PreferredProvider Unavailable Allergies and Adverse Reactions Name Reaction Notes NO KNOWN DRUG ALLERGIES Plan of Treatment Not available. Medications Active Name Start Date Estimated Completion Date SIG Comments baclofen 10 mg oral tablet take 1 tablet (10 mg) by oral route 3 times per day ropinirole 4 mg oral tablet 10/08/2016 TAKE 1 TABLET BY ORAL ROUTE 3 TIMES A DAY NEEDED FOR 30 DAYS oxycodone 15 mg oral tablet 11/11/2016 take 1 tablet (15 mg) by oral route every 6 hours Lyrica 75 mg oral capsule 12/22/2016 06/20/2017 take 1 capsule (75 mg) by oral route 2 times per day for 30 days Nucynta ER 150 mg oral tablet extended release 12 hr 02/18/2017 03/20/2017 take 1 tablet (150 mg) by oral route every 12 hours for 30 days Name Start Date Expiration [...] mL in 24 hours for 7 days amoxicillin 500 mg oral capsule 01/18/2016 01/28/2016 take 2 capsules by oral route 3 times a day for 5 days azithromycin 500 mg oral tablet 01/20/2016 01/25/2016 take 1 tablet (500 mg) by oral route once daily x 5 days oxycodone 15 mg oral tablet 03/27/2016 04/26/2016 take 1 tablet by oral route every 6 hours as needed for 30 days ropinirole 4 mg oral tablet 03/27/2016 08/24/2016 take 1 tablet by oral route 3 times a day as needed for 30 days valacyclovir 1 gram oral tablet 06/15/2016 06/22/2016 take 1 tablet (1,000 mg) by oral route 3 times per day for 7 days hydroxyzine pamoate 50 mg oral capsule 06/15/2016 06/22/2016 take 1 capsule ( 50 mg) by oral route 3 times per day Movantik 25 mg oral tablet 08/27/2016 12/25/2016 take 1 tablet (25 mg) by oral route once daily in the morning for 30 days Discontinued Name Start Date Discontinued Date [...] once every 14 days. for 30 days Requip oral 03/27/2016 Questran 4 gram oral powder in packet 11/21/2015 03/27/2016 take 1 packet (4 gram) dissolved in 2 to 6 ounces of water or noncarbonated beverage by oral route 2 times per day hydrocodone-acetaminophen 5-325 mg oral tablet 01/18/2016 03/27/2016 take 1 tablet by oral route every 6 hours as needed for pain Mobic oral 08/27/2016 tramadol oral 11/11/2016 Neurontin 300 mg oral capsule 08/27/2016 Problem List Description Status Onset Heart disease Active Hypertension Active Vital Signs Date Time BP-Sys(mm[Hg] BP-Sarah(mm[Hg]) HR(bpm) RR(rpm) Temp WT HT HC BMI BSA BMI Percentile O2 Sat(%) 02/18/2017 9:00:00 AM 122 mmHg 70 mmHg 92 bpm 16 rpm 98.3 F 219 lbs 66 in 35.35 kg/m2 2.15 m2 97 % 11/11/2016 8:49:00 AM 134 mmHg 72 mmHg 94 bpm 16 rpm 98.1 F 219 lbs 66 in 35.3472 kg/m 2.1508 m 98 % 08/27/2016 8:44:00 AM 130 mmHg 68 mmHg 101 bpm 18 rpm 98.4 F 224 lbs 66 in 36.15 kg/m2 2.18 m2 99 % 06/26/2016 1:49:00 PM 138 mmHg 80 mmHg 96 bpm 18 rpm 98.7 F 218.25 lbs 66 in 35.2261 kg/m 2.1471 m 99 % 06/17/2016 2:12:00 PM 126 mmHg 70 mmHg 91 bpm 18 rpm 97.8 F 216.25 lbs 66 in 34.90 kg/m2 2.14 m2 100 % 06/15/2016 1:07:00 PM 132 mmHg 80 mmHg 94 bpm 16 rpm 98.7 F 215 lbs 66 in 34.7016 kg/m 2.131 m 97 % 03/27/2016 9:12:00 AM 118 mmHg 78 mmHg 96 bpm 16 rpm 98.6 F 216.25 lbs 65 in 35.99 kg/m2 2.12 m2 99 % 01/20/2016 1:09:00 PM 130 mmHg 80 mmHg 86 bpm 99.3 F 212 lbs 65 in 35.2783 kg/m 2.1 m 100 % 01/18/2016 10:31:00 AM 120 mmHg 88 mmHg 130 bpm 20 rpm 102 F 212 lbs 65 in 35.28 kg/m2 2.10 m2 97 % 12/04/2015 3:49:00 PM 128 mmHg 86 mmHg 104 bpm 18 rpm 98.7 F 211 lbs 65 in 35.1119 kg/m 2.0951 m 94 % 11/21/2015 10:55:00 AM 132 mmHg 78 mmHg 88 bpm 18 rpm 99.3 F 211 lbs 65 in 35.11 kg/m2 2.10 m2 85 % 09/07/2015 5:19:00 PM 130 mmHg 80 mmHg 98 bpm 20 rpm 98.7 F 211 lbs 65 in 35.1119 kg/m 2.0951 m 98 % 07/25/2015 2:34:00 PM 138 mmHg 78 mmHg 91 bpm 18 rpm 97.3 F 213.25 lbs 65 in 35.49 kg/m2 2.11 m2 98 % 05/29/2015 9:19:00 AM 140 mmHg 80 mmHg 78 bpm 18 rpm 96.7 F 208 lbs 65 in 34.6127 kg/m 2.0801 m 98 % 03/29/2015 3:18:00 PM 110 mmHg 82 mmHg 89 bpm 18 rpm 97.9 F 209 lbs 65 in 34.78 kg/m2 2.09 m2 95 % 12/12/2014 9:47:00 AM 124 mmHg 78 mmHg 96 bpm 18 rpm 98.8 F 213 lbs 65 in 35.4447 kg/m 2.105 m 08/21/2014 9:52:00 AM 128 mmHg 62 mmHg 113 bpm 18 rpm 99.2 F 222.375 lbs 65 in 37.00 kg/m2 2.15 m2 97 % 08/08/2014 10:48:00 AM 128 mmHg 72 mmHg 88 bpm 18 rpm 97.6 F 222 lbs 65 in 36.9424 kg/m 2.149 m 04/24/2014 10:32:00 AM 124 mmHg 72 mmHg 80 bpm 18 rpm 98.4 F 216 lbs 65 in 35.94 kg/m2 2.12 m2 04/10/2014 9:30:00 AM 118 mmHg 72 mmHg 88 bpm 18 rpm 98.2 F 217 lbs 65 in 36.1103 kg/m 2.1246 m 11/28/2013 10:02:00 AM 108 mmHg 66 mmHg 94 bpm 18 rpm 98.1 F 211.25 lbs 65 in 35.15 kg/m2 2.10 m2 98 % 07/18/2013 8:55:00 AM 130 mmHg 70 mmHg 90 bpm 20 rpm 98.4 F 205 lbs 65 in 34.1134 kg/m 2.0651 m 98 % 03/01/2013 8:36:00 AM 128 mmHg 68 mmHg 68 bpm 18 rpm 98.7 F 203.25 lbs 65 in 33.82 kg/m2 2.06 m2 11/01/2012 1:31:00 PM 110 mmHg 60 mmHg 92 bpm 18 rpm 96.8 F 206 lbs 65 in 34.2798 kg/m 2.0701 m 98 % 10/18/2012 2:25:00 PM 120 mmHg 70 mmHg 76 bpm 18 rpm 97 F 205.375 lbs 65 in 34.18 kg/m2 2.07 m2 98 % 09/28/2012 1:31:00 PM 110 mmHg 70 mmHg 80 bpm 18 rpm 97.5 F 205.375 lbs 65 in 34.1758 kg/m 2.067 m 99 % 09/15/2012 11:00:00 AM 140 mmHg 70 mmHg 75 bpm 18 rpm 97.4 F 204.25 lbs 65 in 33.99 kg/m2 2.06 m2 99 % 09/08/2012 10:04:00 AM 110 mmHg 70 mmHg 75 bpm 18 rpm 96.8 F 203 lbs 65 in 33.7806 kg/m 2.055 m 97 % 09/01/2012 10:24:00 AM 104 mmHg 62 mmHg 88 bpm 16 rpm 97.5 F 205 lbs 65 in 34.11 kg/m2 2.07 m2 08/17/2012 1:17:00 PM 120 mmHg 70 mmHg 78 bpm 18 rpm 96.9 F 206 lbs 65 in 34.2798 kg/m 2.0701 m 98 % 08/11/2012 10:24:00 AM 110 mmHg 80 mmHg 99 bpm 18 rpm 96.5 F 206 lbs 65 in 34.28 kg/m2 2.07 m2 97 % 08/09/2012 9:16:00 AM 146 mmHg 84 mmHg 88 bpm 20 rpm 98.4 F 206 lbs 65 in 34.2798 kg/m 2.0701 m 08/05/2012 3:20:00 PM 120 mmHg 78 mmHg 80 bpm 18 rpm 98.4 F 207 lbs 65 in 34.45 kg/m2 2.08 m2 07/29/2012 1:37:00 PM 128 mmHg 82 mmHg 80 bpm 18 rpm 98.2 F 205 lbs 65 in 34.1134 kg/m 2.0651 m 10/20/2011 10:46:00 AM 128 mmHg 80 mmHg 118 bpm 18 rpm 98 F 207 lbs 65 in 34.45 kg/m2 2.08 m2 04/22/2011 9:16:00 AM 126 mmHg 80 mmHg 80 bpm 20 rpm 98.1 F 212 lbs 65 in 35.2783 kg/m 2.1 m 04/15/2011 8:52:00 AM 130 mmHg 72 mmHg [...] Comments Housing Lives in a house in [place], [place] Lives with spouse disabeled High school graduate Grown Children Alcohol Current - status unknown Denies illicit substance abuse Tobacco Former smoker Did not serve in History of Procedures Date Ordered Description Order Status 07/25/2015 12:00 AM RADEX SPINE LUMBOSACRAL 2/3 VIEWS Reviewed 09/07/2015 12:00 AM THER/PROPH/DIAG INJ SC/IM Reviewed 09/07/2015 12:00 AM Decadron, Per 1 Mg [facility]# [address]-37 Reviewed 09/07/2015 12:00 AM Depo-Medrol 40mg Reviewed 10/20/2011 12:00 AM Phenergan 50 Mg Im [id number] Reviewed 10/20/2011 12:00 AM Phenergan 50 Mg Im [id number] Reviewed 06/26/2016 12:00 AM X-RAY EXAM OF ANKLE Reviewed 08/27/2016 12:00 AM FLU VACC 4 ANA 3 YRS PLUS IM Reviewed 11/11/2016 12:00 AM Depo-Medrol 80mg Injection Reviewed 11/11/2016 12:00 AM Decadron 8mg Injection Reviewed 08/05/2012 12:00 AM X-RAY EXAM OF [...] 09/21/2012 12:00 AM CULTURE OTHR SPECIMN AEROBIC Reviewed 02/11/2010 12:00 AM COMPLETE CBC W/AUTO DIFF WBC Reviewed 02/11/2010 12:00 AM COMPREHEN METABOLIC PANEL Reviewed 02/11/2010 12:00 AM LIPID PANEL Reviewed 11/28/2013 12:00 AM X-RAY EXAM OF ANKLE Reviewed 10/01/2010 12:00 AM DRAIN/INJ JOINT/BURSA W/O US Reviewed 10/01/2010 12:00 AM Kenalog 40 Mg Im-[facility] [place]#5385-3189-81 Lot #[id number] Exp 2011 Reviewed 10/01/2010 12:00 AM HOT OR COLD PACKS THERAPY Reviewed 10/01/2010 12:00 AM Lidocaine Injection [facility] [address]-30 , Lot # [id number] Exp 03/12/2012 Reviewed 10/01/2010 12:00 AM DRAIN/INJ JOINT/BURSA W/O US Reviewed 04/10/2014 12:00 AM Kenalog 40 Mg Im/C'abida Reviewed 04/10/2014 12:00 AM Rocephin 1 gram [facility]#4571-0006-53 Reviewed 10/24/2010 12:00 AM COMPLETE CBC W/AUTO [...] AM COMPLETE CBC W/AUTO DIFF WBC Reviewed 05/29/2015 12:00 AM URNLS DIP STICK/TABLET RGNT AUTO W/O MICROSCOPY Reviewed Results Summary Data and Description Results 02/25/2010 11:25 AM VANC PEAK 28.70 ug/mL 02/25/2010 7:10 PM VANC TROUGH 9.10 mg/L 03/18/2010 8:49 AM TRIGLYCERIDES 272.0 mg/dLCHOLESTEROL 166.0 mg/dLHDL 29.0 mg/ dLTOT CHOL/HDL 5.7 LDL (CALC) 83.0 mg/dLGLUCOSE 100.0 mg/dLSODIUM 140.0 mmol/ LPOTASSIUM 4.30 mmol/LCHLORIDE 105.0 mmol/LCO2 25.0 mmol/LBUN 12.0 mg/ dLCREATININE 0.80 mg/dLSGOT/AST 19.0 IU/LSGPT/ALT 21.0 IU/LALK PHOS 91.0 IU/ LTOTAL PROTEIN 7.0 g/dLALBUMIN 4.30 g/dLTOTAL BILI 0.30 mg/dLCALCIUM 9.30 mg/ dLAGE 44 GFR NonAA 79 GFR AA 96 eGFR >60 mL/min/1.73 m2eGFR AA* >60 WBC 7.7 RBC 4.39 HGB 13.60 g/dLHCT 41.40 %MCV 94.0 fLMCH 31.0 pgMCHC 32.90 g/dLRDW SD 46 RDW CV 13.20 %MPV 9.60 fLPLT 298 NRBC# 0.00 NRBC% 0.0 %NEUT 58.40 %%LYMP 26.30 % %MONO 13.20 %%EOS 1.30 %%BASO 0.80 %#NEUT 4.51 #LYMP 2.03 #MONO 1.02 #EOS 0.10 # BASO 0.06 MANUAL DIFF NOT IND WBC 7.6 RBC 4.34 HGB 13.60 g/dLHCT 41.0 %MCV 95.0 fLMCH 31.30 pgMCHC 33.20 g/dLRDW SD 46 RDW CV 13.20 %MPV 9.50 fLPLT 276 NRBC# 0.00 NRBC% 0.0 %NEUT 59.0 %%LYMP 27.50 %%MONO 11.40 %%EOS 1.30 %%BASO 0.80 %# NEUT 4.51 #LYMP 2.10 #MONO 0.87 #EOS 0.10 #BASO 0.06 MANUAL DIFF PENDING 10/01/2010 8:15 AM Amount used 80 Joint/Area RT knee 12/05/2010 8:50 AM TRIGLYCERIDES 385.0 mg/dLCHOLESTEROL 239.0 mg/dLHDL 29.0 mg/ dLTOT CHOL/HDL 8.2 LDL (CALC) 133.0 mg/dLWBC 10.5 RBC 4.69 HGB 14.80 g/dLHCT 44.0 %MCV 94.0 fLMCH 31.60 pgMCHC 33.60 g/dLRDW SD 44 RDW CV 12.80 %MPV 10.30 fLPLT 274 NRBC# 0.00 NRBC% 0.0 %NEUT 63.20 %%LYMP 27.20 %%MONO 7.90 %%EOS 1.10 % %BASO 0.60 %#NEUT 6.63 #LYMP 2.85 #MONO 0.83 #EOS 0.12 #BASO 0.06 MANUAL DIFF NOT IND GLUCOSE 100.0 mg/dLSODIUM 138.0 mmol/LPOTASSIUM 4.30 mmol/LCHLORIDE 103.0 mmol/LCO2 23.0 mmol/LBUN 14.0 mg/dLCREATININE 0.80 mg/dLSGOT/AST 13.0 IU/ LSGPT/ALT 11.0 IU/LALK PHOS 126.0 IU/LTOTAL PROTEIN 6.80 g/dLALBUMIN 4.40 g/ dLTOTAL BILI 0.30 mg/dLCALCIUM 9.20 mg/dLAGE 45 GFR NonAA 78 GFR AA 95 eGFR >60 mL/min/1.73 m2eGFR AA* >60 08/09/2012 10:00 AM GLUCOSE 100.0 mg/dLSODIUM 142.0 mmol/LPOTASSIUM 5.40 mmol/ LCHLORIDE 108.0 mmol/LCO2 26.0 mmol/LBUN 10.0 mg/dLCREATININE 0.90 mg/dLSGOT/ AST 21.0 IU/LSGPT/ALT 21.0 IU/LALK PHOS 121.0 IU/LTOTAL PROTEIN 6.70 g/ dLALBUMIN 4.30 g/dLTOTAL BILI 0.30 mg/dLCALCIUM 9.70 mg/dLAGE 47 GFR NonAA 68 GFR AA 82 eGFR 60 eGFR AA* 60 AMYLASE 44 IU/LWBC 9.0 RBC 4.54 HGB 14.20 g/dLHCT 42.10 %MCV 93.0 fLMCH 31.30 pgMCHC 33.70 g/dLRDW SD 45 RDW CV 13.20 %MPV 10.10 fLPLT 277 NRBC# 0.00 NRBC% 0.0 %NEUT 57.60 %%LYMP 33.10 %%MONO 6.30 %%EOS 2.30 % %BASO 0.70 %#NEUT 5.20 #LYMP 2.99 #MONO 0.57 #EOS 0.21 #BASO 0.06 MANUAL DIFF NOT IND 09/22/2012 8:52 AM WBC STOOL NO WBC SEEN C DIFFICILE NEGATIVE -- C DIFF TOXIN NOT DETECTED 10/07/2012 9:30 AM C DIFFICILE NEGATIVE -- C DIFF TOXIN NOT DETECTED 10/07/2012 10:00 AM SOURCE: STOOL 05/29/2015 9:52 AM COLOR YELLOW APPEARANCE CLEAR SPEC GRAV <=1.005 pH 6.0 PROTEIN NEGATIVE GLUCOSE NEGATIVE mg/dLKETONE NEGATIVE BILIRUBIN NEGATIVE BLOOD NEGATIVE NITRITE NEGATIVE LEUK SCREEN NEGATIVE MICRO INDICATED? NOT INDICATED WBC 9.6 RBC 4.80 HGB 15.50 g/dLHCT 46.30 %MCV 97.0 fLMCH 32.30 pgMCHC 33.50 g/ dLRDW SD 46 RDW CV 13.0 %MPV 10.10 fLPLT 266 NRBC# 0.00 NRBC% 0.0 %NEUT 58.70 %% LYMP 32.30 %%MONO 7.0 %%EOS 1.40 %%BASO 0.60 %#NEUT 5.62 #LYMP 3.09 #MONO 0.67 # EOS 0.13 #BASO 0.06 MANUAL DIFF NOT IND History Of Immunizations Name Date Admin Mfg Name Mfg Code Trade Name Lot# Route Inj Vis Given Vis Pub CVX Influenza 08/27/2016 sanofi pasteur PMC Fluzone Quadrivalent [id number] Intramuscular Left Deltoid 08/27/2016 05/18/2015 141 History of Past Illness Name Date of [...] (restless legs syndrome) Dec 04 2015 3:53PM Pharyngitis Jan 18 2016 10:36AM Acute Pharyngitis Jan 20 2016 1:15PM Throat Pain Jan 20 2016 1:15PM Fever, unspecified Jan 20 2016 1:15PM Wheezing Jan 20 2016 1:15PM Low Back Pain Mar 27 2016 9:14AM Shingles outbreak Jun 15 2016 1:09PM Other postherpetic nervous system involvement Jun 17 2016 2:14PM Acute left ankle pain Jun 26 2016 1:54PM Dorsalgia, unspecified Aug 27 2016 8:53AM Other chronic pain Aug 27 2016 8:53AM Spinal stenosis Nov 11 2016 8:54AM Spinal stenosis Feb 18 2017 9:04AM Payers Insurance Name Company Name Plan Name Plan Number Policy Number Policy Group Number Start Date BCBS Bcbs Kyung Jaramillo [id number] Saturday, 2009 Medicare RHC Medicare RHC [id number] N/A Medicare Part A Medicare Part A [id number] Thursday, 2011 Medicare Part B Medicare Secondary [id number] N/A Medicare Part A zzzMedicare A Secondary [id number] N/A Medicare Part A Medicare - Lab/Xray [id number] Thursday, May 12, 2011 History of Encounters Visit Date Visit Type Provider 02/18/2017 Office visit Kurt Navas MD 11/11/2016 Office visit Kurt Navas MD 08/27/2016 Office visit Kurt Navas MD 06/26/2016 Office visit Kurt Navas MD 06/17/2016 Office visit Trina Deluna INTRANET DEVELOPER 06/15/2016 Office visit Janae Wise INTRANET DEVELOPER 03/27/2016 Office visit Kurt Navas MD 01/20/2016 Office visit Charlotte Gilbert INTRANET DEVELOPER 01/18/2016 Office visit Kurt Navas MD 12/04/2015 Office visit Kurt Navas MD 11/21/2015 Office visit Kurt Navas MD 09/07/2015 Office visit Charlotte Gilbert INTRANET DEVELOPER 07/25/2015 Office visit Trina Deluna INTRANET DEVELOPER 05/29/2015 Office visit Bernardino De La Garza INTRANET DEVELOPER 03/29/2015 Office visit Kurt Navas MD 12/12/2014 [...] 10/18/2012 Office visit Jin Duran MD 10/07/2012 [facility] Jin Duran MD 09/28/2012 Office visit Jin [...] 10/20/2011 Office visit Kurt Navas MD 05/12/2011 [facility] Thao Burkett MD 04/22/2011 Office visit Kurt [...]
--- OUTSIDE RECORDS SUMMARY | 2018-03-29 09:54 | XMS REPORT ---
Author Author Trina Deluna Organization [facility] Address [address] [place] [id number] Care Team Providers Care Rn Trauma Name Role Phone Trina Deluna PCP Unavailable Allergies and Adverse Reactions Name Reaction Notes NO KNOWN DRUG ALLERGIES Plan of Treatment Not available. Medications Active Name Start Date Estimated Completion Date SIG Comments Mobic oral tramadol oral Neurontin 300 mg oral capsule ropinirole 4 mg oral tablet 03/27/2016 08/24/2016 take 1 tablet by oral route 3 times a day as needed for 30 days Lyrica 75 mg oral capsule 06/10/2016 12/07/2016 take 1 capsule (75 mg) by oral route 2 times per day for 30 days valacyclovir 1 gram oral tablet 06/15/2016 06/22/2016 take 1 tablet (1,000 mg) by oral route 3 times per day for 7 days hydroxyzine pamoate 50 mg oral capsule 06/15/2016 06/22/2016 take 1 capsule ( 50 mg) by oral route 3 times per day Name Start Date Expiration Date SIG Comments [...] 6 hours as needed for 30 days Discontinued Name Start Date [...] every 6 hours as needed for pain Problem List Description Status Onset Heart disease Active Hypertension Active Vital Signs Date Time BP-Sys(mm[Hg] BP-Sarah(mm[Hg]) HR(bpm) RR(rpm) Temp WT HT HC BMI BSA BMI Percentile O2 Sat(%) 06/17/2016 2:12:00 PM 126 mmHg 70 mmHg [...] Comments Housing Lives in a house in [place], [place] Lives with spouse disabeled High school graduate Grown Children Alcohol Current - status unknown Denies illicit substance abuse Tobacco Former smoker Did not serve in History of Procedures Date Ordered Description Order Status 07/25/2015 12:00 AM RADEX SPINE LUMBOSACRAL 2/3 VIEWS Returned 09/07/2015 12:00 AM THER/PROPH/DIAG INJ SC/IM Reviewed 09/07/2015 12:00 AM Decadron, Per 1 Mg [facility]# [address]-35 Reviewed 09/07/2015 12:00 AM Depo-Medrol 40mg Reviewed 10/20/2011 12:00 AM Phenergan 50 Mg Im [id number] Reviewed 08/05/2012 12:00 AM X-RAY EXAM OF [...] Reviewed 10/01/2010 12:00 AM Kenalog 40 Mg Im-[facility]#3932-0361-84 Lot #[id number] Exp 2011 Reviewed 10/01/2010 12:00 AM HOT OR COLD PACKS THERAPY Reviewed 10/01/2010 12:00 AM Lidocaine Injection [facility] [address]-22 , Lot # [id number] Exp 03/12/2012 Reviewed 10/01/2010 12:00 AM DRAIN/INJ JOINT/BURSA W/O US Reviewed 04/10/2014 12:00 AM Kenalog 40 Mg Im/C'abida Reviewed 04/10/2014 12:00 AM Rocephin 1 gram [facility]#4129-3078-70 Reviewed 10/24/2010 12:00 AM COMPLETE CBC W/AUTO [...] nervous system involvement Jun 17 2016 2:14PM Payers Insurance Name Company Name Plan Name Plan Number Policy Number Policy Group Number Start Date BCBS [facility] [id number] Saturday, 2009 Medicare Part A Medicare [facility] [id number] N/A Medicare Part A Medicare Part A [id number] Thursday, 2011 Medicare Part B Medicare Secondary [id number] N/A Medicare Part A zzzMedicare A Secondary [id number] N/A Medicare Part A Medicare - Lab/Xray [id number] Thursday, May 12, 2011 History of Encounters Visit Date Visit Type Provider 06/17/2016 Office visit Trina Deluna EMERGENCY DEPARTMENT MANAGER 06/15/2016 Office visit Janae Wise EMERGENCY DEPARTMENT MANAGER 03/27/2016 Office visit Kurt Navas MD 01/20/2016 Office visit Charlotte Gilbert EMERGENCY DEPARTMENT MANAGER 01/18/2016 Office visit Kurt Navas MD 12/04/2015 Office visit Kurt Navas MD 11/21/2015 Office visit Kurt Navas MD 09/07/2015 Office visit Charlotte Gilbert EMERGENCY DEPARTMENT MANAGER 07/25/2015 Office visit Trina Deluna EMERGENCY DEPARTMENT MANAGER 05/29/2015 Office visit Bernardino De La Garza EMERGENCY DEPARTMENT MANAGER 03/29/2015 Office visit Kurt Navas MD 12/12/2014 [...] Navas MD 04/15/2011 Office visit Trina Deluna EMERGENCY DEPARTMENT MANAGER 02/18/2011 Office visit Kurt Navas MD 12/05/2010 [...]
--- OUTSIDE RECORDS SUMMARY | 2018-03-29 09:56 | XMS REPORT ---
Author Author Kurt Navas [facility] Address [address] [place] [phone] Care Team Providers Care Grinder Gear Name Role Phone Kurt Navas PCP Unavailable Kurt Navas PreferredProvider Unavailable Allergies and Adverse Reactions Name Reaction Notes NO KNOWN DRUG ALLERGIES Plan of Treatment Not available. Medications Active Name Start Date Estimated Completion Date SIG Comments Lyrica 75 mg oral capsule 06/10/2016 12/07/2016 take 1 capsule (75 mg) by oral route 2 times per day for 30 days baclofen 10 mg oral tablet take 1 tablet (10 mg) by oral route 3 times per day Movantik 25 mg oral tablet 08/27/2016 12/25/2016 take 1 tablet (25 mg) by oral route once daily in the morning for 30 days ropinirole 4 mg oral tablet 10/08/2016 TAKE 1 TABLET BY ORAL ROUTE 3 TIMES A DAY NEEDED FOR 30 DAYS Nucynta ER 100 mg oral tablet extended release 12 hr 10/30/2016 11/29/2016 take 1 tablet (100 mg) by oral route every 12 hours for 30 days oxycodone 15 mg oral tablet 11/11/2016 take 1 tablet (15 mg) by oral route every 6 hours Name Start Date Expiration Date SIG Comments [...] by oral route 3 times per day Discontinued Name Start Date Discontinued Date SIG [...] HC BMI BSA BMI Percentile O2 Sat(%) 11/11/2016 8:49:00 AM 134 mmHg 72 mmHg 94 bpm 16 rpm 98.1 F 219 lbs 66 in 35.35 kg/m2 2.15 m2 98 % 08/27/2016 8:44:00 AM 130 mmHg 68 mmHg 101 bpm 18 rpm 98.4 F 224 lbs 66 in 36.1542 kg/m 2.1752 m 99 % 06/26/2016 1:49:00 PM 138 mmHg 80 mmHg 96 bpm 18 rpm 98.7 F 218.25 lbs 66 in 35.23 kg/m2 2.15 m2 99 % 06/17/2016 2:12:00 PM 126 mmHg 70 mmHg 91 bpm 18 rpm 97.8 F 216.25 lbs 66 in 34.9033 kg/m 2.1372 m 100 % 06/15/2016 1:07:00 PM 132 mmHg 80 mmHg 94 bpm 16 rpm 98.7 F 215 lbs 66 in 34.70 kg/m2 2.13 m2 97 % 03/27/2016 9:12:00 AM 118 mmHg 78 mmHg 96 bpm 16 rpm 98.6 F 216.25 lbs 65 in 35.9855 kg/m 2.121 m 99 % 01/20/2016 1:09:00 PM 130 mmHg 80 mmHg 86 bpm 99.3 F 212 lbs 65 in 35.28 kg/m2 2.10 m2 100 % 01/18/2016 10:31:00 AM 120 mmHg 88 mmHg 130 bpm 20 rpm 102 F 212 lbs 65 in 35.2783 kg/m 2.1 m 97 % 12/04/2015 3:49:00 PM 128 mmHg [...] Comments Housing Lives in a house in [place], [place] Lives with spouse disabeled High school graduate Grown Children Alcohol Current - status unknown Denies illicit substance abuse Tobacco Former smoker Did not serve in History of Procedures Date Ordered Description Order Status 07/25/2015 12:00 AM RADEX SPINE LUMBOSACRAL 2/3 VIEWS Reviewed 09/07/2015 12:00 AM THER/PROPH/DIAG INJ SC/IM Reviewed 09/07/2015 12:00 AM Decadron, Per [address] [facility]# [address]-22 Reviewed 09/07/2015 12:00 AM Depo-Medrol 40mg Reviewed 10/20/2011 12:00 AM Phenergan 50 Mg Im [id number] Reviewed 10/20/2011 12:00 AM Phenergan 50 Mg Im [id number] Reviewed 06/26/2016 12:00 AM X-RAY EXAM OF ANKLE Returned 08/27/2016 12:00 AM FLU VACC 4 ANA [...] Reviewed 10/01/2010 12:00 AM Kenalog 40 Mg Im-[facility]#1258-1120-74 Lot #[id number] Exp 2011 Reviewed 10/01/2010 12:00 AM HOT OR COLD PACKS THERAPY Reviewed 10/01/2010 12:00 AM Lidocaine Injection [facility] [address]-47 , Lot # [id number] Exp 03/12/2012 Reviewed 10/01/2010 12:00 AM DRAIN/INJ JOINT/BURSA W/O US Reviewed 04/10/2014 12:00 AM Kenalog 40 Mg Im/C'abida Reviewed 04/10/2014 12:00 AM Rocephin [address] [facility]#0923-5526-89 Reviewed 10/24/2010 12:00 AM COMPLETE CBC W/AUTO [...] Vis Pub CVX Influenza 08/27/2016 sanofi pasteur [facility] Fluzone Quadrivalent [id number] Intramuscular Left Deltoid 08/27/2016 05/18/2015 141 History [...] 8:53AM Spinal stenosis Nov 11 2016 8:54AM Payers Insurance Name Company Name Plan Name Plan Number Policy Number Policy Group Number Start Date [facility] [id number] Saturday, 2009 Medicare RHC Medicare RHC [id number] N/A Medicare Part A Medicare Part A [id number] Thursday, 2011 Medicare Part B Medicare Secondary [id number] N/A Medicare Part A zzzMedicare A Secondary [id number] N/A Medicare Part A Medicare - Lab/Xray [id number] Thursday, May 12, 2011 History of Encounters Visit Date Visit Type Provider 11/11/2016 Office visit Kurt Navas MD 08/27/2016 Office visit Kurt Navas MD 06/26/2016 Office visit Kurt Navas MD 06/17/2016 Office visit Trina Deluna HIGHWAY CONSTRUCTION INSPECTOR 06/15/2016 Office visit Janae Wise HIGHWAY CONSTRUCTION INSPECTOR 03/27/2016 Office visit Kurt Navas MD 01/20/2016 Office visit Charlotte Gilbert HIGHWAY CONSTRUCTION INSPECTOR 01/18/2016 Office visit Kurt Navas MD 12/04/2015 Office visit Kurt Navas MD 11/21/2015 Office visit Kurt Navas MD 09/07/2015 Office visit Charlotte Gilbert HIGHWAY CONSTRUCTION INSPECTOR 07/25/2015 Office visit Trina Deluna HIGHWAY CONSTRUCTION INSPECTOR 05/29/2015 Office visit Bernardino De La Garza HIGHWAY CONSTRUCTION INSPECTOR 03/29/2015 Office visit Kurt Navas MD 12/12/2014 Office visit Kurt Navas MD 08/21/2014 Office visit Kurt Navas MD 08/08/2014 Office visit Kurt Navas MD 04/24/2014 Office visit Kurt Navas MD 04/10/2014 Office visit Kurt Navas MD 11/28/2013 Office visit Kurt Navas MD 07/18/2013 Office visit Kurt Navas MD 03/01/2013 Office visit Kurt Nvaas MD 11/01/2012 Office visit Jin Duran MD [...]
--- OUTSIDE RECORDS SUMMARY | 2018-03-29 09:57 | XMS REPORT ---
Author Author Kurt Navas [facility] Address [address] [place] [phone] Care Team Providers Care Waiver Analyst Name Role Phone Kurt Navas PCP Unavailable [...] Comments Housing Lives in a house in [place], [place] Lives with spouse disabeled High school graduate Grown Children Alcohol Current - status unknown Denies illicit substance abuse Tobacco Former smoker Did not serve in History of Procedures Date Ordered Description Order Status 07/25/2015 12:00 AM RADEX SPINE LUMBOSACRAL 2/3 VIEWS Reviewed 09/07/2015 12:00 AM THER/PROPH/DIAG INJ SC/IM Reviewed 09/07/2015 12:00 AM Decadron, Per 1 Mg [facility]# [address]-23 Reviewed 09/07/2015 12:00 AM Depo-Medrol 40mg Reviewed 10/20/2011 12:00 AM Phenergan 50 Mg Im [id number] Reviewed 10/20/2011 12:00 AM Phenergan 50 Mg Im [id number] Reviewed 06/26/2016 12:00 AM X-RAY EXAM OF [...] Reviewed 10/01/2010 12:00 AM Kenalog 40 Mg Im-[facility]#3793-5575-71 Lot #[id number] Exp 2011 Reviewed 10/01/2010 12:00 AM HOT OR COLD PACKS THERAPY Reviewed 10/01/2010 12:00 AM Lidocaine Injection [facility] [address]-27 , Lot # [id number] Exp 03/12/2012 Reviewed 10/01/2010 12:00 AM DRAIN/INJ JOINT/BURSA W/O US Reviewed 04/10/2014 12:00 AM Kenalog 40 Mg Im/C'abida Reviewed 04/10/2014 12:00 AM Rocephin 1 gram [facility]#1273-8146-95 Reviewed 10/24/2010 12:00 AM COMPLETE CBC W/AUTO [...] Influenza 08/27/2016 sanofi pasteur [facility] Fluzone Quadrivalent [id number] Intramuscular Left Deltoid 08/27/2016 05/18/2015 141 History [...] Number Start Date BCBS Bcbs Kyung Jaramillo [id number] Saturday, 2009 Medicare RHC Medicare RHC [id number] N/A Medicare Part A Medicare Part A [id number] Thursday, 2011 Medicare Part B Medicare Secondary [id number] N/A Medicare Part A zzzMedicare A Secondary [id number] N/A Medicare Part A Medicare - Lab/Xray [id number] Thursday, May 12, 2011 History of Encounters Visit Date Visit Type Provider 02/18/2017 Office visit Kurt Navas MD 11/11/2016 Office visit Kurt Navas MD 08/27/2016 Office visit Kurt Navas MD 06/26/2016 Office visit Kurt Navas MD 06/17/2016 Office visit Trina Deluna DIAPHRAGM BUILDER 06/15/2016 Office visit Janae Wise DIAPHRAGM BUILDER 03/27/2016 Office visit Kurt Navas MD 01/20/2016 Office visit Charlotte Gilbert DIAPHRAGM BUILDER 01/18/2016 Office visit Kurt Navas MD 12/04/2015 Office visit Kurt Navas MD 11/21/2015 Office visit Kurt Navas MD 09/07/2015 Office visit Charlotte Gilbert DIAPHRAGM BUILDER 07/25/2015 Office visit Trina Deluna DIAPHRAGM BUILDER 05/29/2015 Office visit Bernardino De La Garza DIAPHRAGM BUILDER 03/29/2015 Office visit Kurt Navas MD 12/12/2014 [...] 10/18/2012 Office visit Jin Duran MD 10/07/2012 [facility] Jin Duran MD 09/28/2012 Office visit Jin [...] 10/20/2011 Office visit Kurt Navas MD 05/12/2011 [facility] Thao Burkett MD 04/22/2011 Office visit Kurt [...]
--- OUTSIDE RECORDS SUMMARY | 2018-03-29 09:58 | XMS REPORT ---
Author Author Kurt Navas [facility] Address [address] [place] [phone] Care Team Providers Care Staff Nurse Icu Resource Team Name Role Phone Kurt Navas PCP Unavailable [...] 6 hours as needed for 30 days valacyclovir 1 [...] HC BMI BSA BMI Percentile O2 Sat(%) 06/26/2016 1:49:00 PM 138 mmHg 80 mmHg [...] Comments Housing Lives in a house in [place], [place] Lives with spouse disabeled High school graduate Grown Children Alcohol Current - status unknown Denies illicit substance abuse Tobacco Former smoker Did not serve in History of Procedures Date Ordered Description Order Status 07/25/2015 12:00 AM RADEX SPINE LUMBOSACRAL 2/3 VIEWS Returned 09/07/2015 12:00 AM THER/PROPH/DIAG INJ SC/IM Reviewed 09/07/2015 12:00 AM Decadron, Per 1 Mg [facility]# [address]-10 Reviewed 09/07/2015 12:00 AM Depo-Medrol 40mg Reviewed 10/20/2011 12:00 AM Phenergan 50 Mg Im [id number] Reviewed 06/26/2016 12:00 AM X-RAY EXAM OF ANKLE Returned 08/05/2012 12:00 AM X-RAY EXAM OF ABDOMEN [...] Reviewed 10/01/2010 12:00 AM Kenalog 40 Mg Im-[facility]#3211-2307-18 Lot #[id number] Exp 2011 Reviewed 10/01/2010 12:00 AM HOT OR COLD PACKS THERAPY Reviewed 10/01/2010 12:00 AM Lidocaine Injection [facility] [address]-73 , Lot # [id number] Exp 03/12/2012 Reviewed 10/01/2010 12:00 AM DRAIN/INJ JOINT/BURSA W/O US Reviewed 04/10/2014 12:00 AM Kenalog 40 Mg Im/C'abida Reviewed 04/10/2014 12:00 AM Rocephin 1 gram [facility]#1871-0454-46 Reviewed 10/24/2010 12:00 AM COMPLETE CBC W/AUTO [...] left ankle pain Jun 26 2016 1:54PM Payers Insurance Name Company Name Plan Name Plan Number Policy Number Policy Group Number Start Date [facility] [id number] Saturday, 2009 Medicare Part A Medicare [facility] [id number] N/A Medicare Part A Medicare Part A [id number] Thursday, 2011 Medicare Part B Medicare Secondary [id number] N/A Medicare Part A zzzMedicare A Secondary [id number] N/A Medicare Part A Medicare - Lab/Xray [id number] Thursday, May 12, 2011 History of Encounters Visit Date Visit Type Provider 06/26/2016 Office visit Kurt Navas MD 06/17/2016 Office visit Trina Deluna ASSISTANT QUALITY MANAGER 06/15/2016 Office visit Janae Wise ASSISTANT QUALITY MANAGER 03/27/2016 Office visit Kurt Navas MD 01/20/2016 Office visit Charlotte Gilbert ASSISTANT QUALITY MANAGER 01/18/2016 Office visit Kurt Navas MD 12/04/2015 Office visit Kurt Navas MD 11/21/2015 Office visit Kurt Navas MD 09/07/2015 Office visit Charlotte Gilbert ASSISTANT QUALITY MANAGER 07/25/2015 Office visit Trina Deluna ASSISTANT QUALITY MANAGER 05/29/2015 Office visit Bernardino De La Garza ASSISTANT QUALITY MANAGER 03/29/2015 Office visit Kurt Navas MD [...] Navas MD 04/15/2011 Office visit Trina Deluna ASSISTANT QUALITY MANAGER 02/18/2011 Office visit Kurt Navas MD [...]
--- OUTSIDE RECORDS SUMMARY | 2018-03-29 09:59 | XMS REPORT ---
Author Author Charlotte Gilbert [facility] Address [address] [place] [phone] Care Team Providers Care Communications Editor Name Role Phone Charlotte Gilbert PCP Allergies and Adverse Reactions Name Reaction Notes NO KNOWN DRUG ALLERGIES Plan of Treatment Not available. Medications Active Name Start Date Estimated Completion Date SIG Comments Requip oral Questran 4 gram oral powder in packet [...] 2 times per day for 30 days amoxicillin 500 mg oral capsule 01/18/2016 01/28/2016 take 2 capsules by oral route 3 times a day for 5 days hydrocodone-acetaminophen 5-325 mg oral tablet 01/18/2016 take 1 tablet by oral route every 6 hours as needed for pain azithromycin 500 mg oral tablet 01/20/2016 01/25/2016 take 1 tablet (500 mg) by oral route once daily x 5 days Name Start Date Expiration Date SIG [...] HC BMI BSA BMI Percentile O2 Sat(%) 01/20/2016 1:09:00 PM 130 mmHg 80 mmHg [...] Comments Housing Lives in a house in [place], [place] Lives with spouse disabeled High school graduate Grown Children Alcohol Current - status unknown Denies illicit substance abuse Tobacco Former smoker Did not serve in History of Procedures Date Ordered Description Order Status 07/25/2015 12:00 AM RADEX SPINE LUMBOSACRAL 2/3 VIEWS Returned 09/07/2015 12:00 AM THER/PROPH/DIAG INJ SC/IM Reviewed 09/07/2015 12:00 AM Decadron, Per 1 Mg [facility]# [address]-60 Reviewed 09/07/2015 12:00 AM Depo-Medrol 40mg Reviewed 10/20/2011 12:00 AM Phenergan 50 Mg Im [id number] Reviewed 08/05/2012 12:00 AM X-RAY EXAM OF [...] Kenalog 40 Mg Im-[facility]#6830-2634-45 Lot #[id number] Exp 2011 Reviewed 10/01/2010 12:00 AM HOT OR COLD PACKS THERAPY Reviewed 10/01/2010 12:00 AM Lidocaine Injection [facility] [address]-70 , Lot # [id number] Exp 03/12/2012 Reviewed 10/01/2010 12:00 AM DRAIN/INJ JOINT/BURSA W/O US Reviewed 04/10/2014 12:00 AM Kenalog 40 Mg Im/C'abida Reviewed 04/10/2014 12:00 AM Rocephin 1 gram [facility]#9488-4236-91 Reviewed 10/24/2010 12:00 AM COMPLETE CBC W/AUTO [...] 2016 1:15PM Wheezing Jan 20 2016 1:15PM Payers Insurance Name Company Name Plan Name Plan Number Policy Number Policy Group Number Start Date BCBS Bc[employer]ung Jaramillo [id number] Saturday, 2009 Medicare Part A Medicare A Secondary [id number] N/A Medicare Part A Medicare Part A [id number] Thursday, 2011 Medicare Part B Medicare Secondary [id number] N/A History of Encounters Visit Date Visit Type Provider 01/20/2016 Office visit Charlotte Gilbert AVIATION ELECTRICIAN 01/18/2016 Office visit Kurt Navas MD 12/04/2015 Office visit Kurt Navas MD 11/21/2015 Office visit Kurt Navas MD 09/07/2015 Office visit Charlotte Gilbert AVIATION ELECTRICIAN 07/25/2015 Office visit Trina Deluna AVIATION ELECTRICIAN 05/29/2015 Office visit Bernardino De La Garza AVIATION ELECTRICIAN 03/29/2015 Office visit Kurt Navas MD 12/12/2014 [...]
[2018-03-29] MEDS ORDERED: BACITRACIN 100,000 UNIT/NS 1000 ML POUR BOTTLE IR ONE ×2 (10:00)
--- OUTSIDE RECORDS SUMMARY | 2018-03-29 10:00 | XMS REPORT ---
Author Author Kurt Navas [facility] Address [address] [place] [phone] Care Team Providers Care Tube Draw Helper Name Role Phone Kurt Navas PCP Unavailable Kurt Navas PreferredProvider Unavailable Allergies and Adverse Reactions Name Reaction Notes NO KNOWN DRUG ALLERGIES Plan of Treatment Not available. Medications Active Name Start Date Estimated Completion Date SIG Comments ropinirole 4 mg oral tablet 10/08/2016 TAKE 1 TABLET BY ORAL ROUTE 3 TIMES A DAY NEEDED FOR 30 DAYS ropinirole 4 mg oral tablet 04/13/2017 TAKE 1 TABLET BY MOUTH THREE TIMES DAILY NEEDED Neurontin 300 mg oral capsule Saxenda 3 mg/0.5 mL (18 mg/3 mL) subcutaneous pen injector 06/12/2017 inject 3 mg by subcutaneous route once daily in the abdomen, thigh, or upper arm Nucynta ER 150 mg oral tablet extended release 12 hr 07/09/2017 take 1 tablet (150 mg) by oral route every 12 hours amoxicillin 500 mg oral capsule 07/09/2017 take 2 capsules by oral route 3 times a day for 5 days Name Start Date Expiration Date [...] daily in the morning for 30 days Lyrica 75 mg oral capsule 12/22/2016 06/20/2017 take 1 capsule (75 mg) by oral route 2 times per day for 30 days Discontinued Name Start Date [...] 11/11/2016 Neurontin 300 mg oral capsule 08/27/2016 baclofen 10 mg oral tablet 06/12/2017 take 1 tablet (10 mg) by oral route 3 times per day oxycodone 15 mg oral tablet 11/11/2016 06/12/2017 take 1 tablet (15 mg) by oral route every 6 hours Problem List Description Status Onset Heart disease Active Hypertension Active Vital Signs Date Time BP-Sys(mm[Hg] BP-Sarah(mm[Hg]) HR(bpm) RR(rpm) Temp WT HT HC BMI BSA BMI Percentile O2 Sat(%) 07/09/2017 9:54:00 AM 132 mmHg 74 mmHg 97 bpm 18 rpm 97.9 F 229 lbs 66 in 36.96 kg/m2 2.20 m2 97 % 06/12/2017 9:11:00 AM 132 mmHg 72 mmHg 93 bpm 18 rpm 97.8 F 224.25 lbs 66 in 36.1945 kg/m 2.1764 m 99 % 02/18/2017 9:00:00 AM 122 mmHg 70 mmHg [...] Comments Housing Lives in a house in [place], [place] Lives with spouse disabeled High school graduate Grown Children Alcohol Current - status unknown Denies illicit substance abuse Tobacco Former smoker Did not serve in History of Procedures Date Ordered Description Order Status 07/25/2015 12:00 AM RADEX SPINE LUMBOSACRAL 2/3 VIEWS Reviewed 09/07/2015 12:00 AM THER/PROPH/DIAG INJ SC/IM Reviewed 09/07/2015 12:00 AM Decadron, Per 1 Mg [facility]# [address]-86 Reviewed 09/07/2015 12:00 AM Depo-Medrol 40mg Reviewed 10/20/2011 12:00 AM Phenergan 50 Mg Im [id number] Reviewed 10/20/2011 12:00 AM Phenergan 50 Mg Im [id number] Reviewed 06/26/2016 12:00 AM X-RAY EXAM OF [...] 10/01/2010 12:00 AM Kenalog 40 Mg Im-[facility]#5704-2061-29 Lot #[id number] Exp 2011 Reviewed 10/01/2010 12:00 AM HOT OR COLD PACKS THERAPY Reviewed 10/01/2010 12:00 AM Lidocaine Injection [facility] [address]-15 , Lot # [id number] Exp 03/12/2012 Reviewed 10/01/2010 12:00 AM DRAIN/INJ JOINT/BURSA W/O US Reviewed 04/10/2014 12:00 AM Kenalog 40 Mg Im/C'abida Reviewed 04/10/2014 12:00 AM Rocephin 1 gram [facility]#3691-3436-63 Reviewed 10/24/2010 12:00 AM COMPLETE CBC W/AUTO [...] RGNT AUTO W/O MICROSCOPY Reviewed Results Summary Date and Description Results 03/18/2010 8:49 AM TRIGLYCERIDES 272.0 mg/dLCHOLESTEROL 166.0 [...] eGFR >60 mL/min/1.73 m2eGFR AA* >60 WBC 7.6 RBC 4.34 HGB 13.60 g/dLHCT 41.0 %MCV 95.0 fLMCH 31.30 pgMCHC 33.20 g/dLRDW SD 46 RDW CV 13.20 %MPV 9.50 fLPLT 276 NRBC# 0.00 NRBC% 0.0 %NEUT 59.0 %%LYMP 27.50 %% MONO 11.40 %%EOS 1.30 %%BASO 0.80 %#NEUT 4.51 #LYMP 2.10 #MONO 0.87 #EOS 0.10 # BASO 0.06 MANUAL DIFF PENDING 12/05/2010 8:50 AM TRIGLYCERIDES 385.0 mg/dLCHOLESTEROL 239.0 [...] 8:52 AM WBC STOOL NO WBC SEEN 05/29/2015 9:52 AM COLOR YELLOW APPEARANCE CLEAR [...] Vis Pub CVX Influenza 08/27/2016 sanofi pasteur [facility] Fluzone Quadrivalent [id number] Intramuscular Left Deltoid 08/27/2016 05/18/2015 141 History [...] 8:54AM Spinal stenosis Feb 18 2017 9:04AM Spinal stenosis Jun 12 2017 9:13AM BMI 36.0-36.9,adult Jun 12 2017 9:13AM Low Back Pain Jul 09 2017 9:56AM Sinusitis Jul 09 2017 9:56AM Payers Insurance Name Company Name Plan Name Plan Number Policy Number Policy Group Number Start Date BCBS Bc Kyung Jaramillo [id number] Saturday, 2009 Medicare RHC Medicare RHC [id number] N/A Medicare Part A Medicare Part A [id number] Thursday, 2011 Medicare Part B Medicare Secondary [id number] N/A Medicare Part A zzzMedicare A Secondary [id number] N/A Medicare Part A Medicare - Lab/Xray [id number] Thursday, May 12, 2011 History of Encounters Visit Date Visit Type Provider 07/09/2017 Office visit Kurt Navas MD 06/12/2017 Office visit Kurt Navas MD 02/18/2017 Office visit Kurt Navas MD 11/11/2016 Office visit Kurt Navas MD 08/27/2016 Office visit Kurt Navas MD 06/26/2016 Office visit Kurt Navas MD 06/17/2016 Office visit Trina Deluna FIRST FRONT VENTILATOR 06/15/2016 Office visit Janae Wise FIRST FRONT VENTILATOR 03/27/2016 Office visit Kurt Navas MD 01/20/2016 Office visit Charlotte Gilbert FIRST FRONT VENTILATOR 01/18/2016 Office visit Kurt Navas MD 12/04/2015 Office visit Kurt Navas MD 11/21/2015 Office visit Kurt Navas MD 09/07/2015 Office visit Charlotte Gilbert FIRST FRONT VENTILATOR 07/25/2015 Office visit Trina Deluna FIRST FRONT VENTILATOR 05/29/2015 Office visit Bernardino De La Garza FIRST FRONT VENTILATOR 03/29/2015 Office visit Kurt Navas MD 12/12/2014 [...] 10/18/2012 Office visit Jin Duran MD 10/07/2012 [facility] Jin Duran MD 09/28/2012 Office visit Jni Duran MD 09/15/2012 Office visit Jin Duran [...] 10/20/2011 Office visit Kurt Navas MD 05/12/2011 [facility] Thao Burkett MD 04/22/2011 Office visit [...]
--- OUTSIDE RECORDS SUMMARY | 2018-03-29 10:02 | XMS REPORT ---
Author Author Kurt Navas [facility] Address [address] [place] [id number] Care Team Providers Care Diamond Assorter Name Role Phone Kurt Navas PCP Unavailable [...] Comments Housing Lives in a house in [place], [place] Lives with spouse disabeled High school graduate Grown Children Alcohol Current - status unknown Denies illicit substance abuse Tobacco Former smoker Did not serve in History of Procedures Date Ordered Description Order Status 07/25/2015 12:00 AM RADEX SPINE LUMBOSACRAL 2/3 VIEWS Reviewed 09/07/2015 12:00 AM THER/PROPH/DIAG INJ SC/IM Reviewed 09/07/2015 12:00 AM Decadron, Per 1 Mg [facility]# [address]-92 Reviewed 09/07/2015 12:00 AM Depo-Medrol 40mg Reviewed 10/20/2011 12:00 AM Phenergan 50 Mg Im [id number] Reviewed 10/20/2011 12:00 AM Phenergan 50 Mg Im [id number] Reviewed 06/26/2016 12:00 AM X-RAY EXAM OF ANKLE Returned 08/27/2016 12:00 AM FLU VACC 4 ANA 3 YRS PLUS IM Reviewed 08/05/2012 12:00 AM X-RAY EXAM OF [...] 10/01/2010 12:00 AM Kenalog 40 Mg Im-[facility]#6148-5552-66 Lot #[id number] Exp 2011 Reviewed 10/01/2010 12:00 AM HOT OR COLD PACKS THERAPY Reviewed 10/01/2010 12:00 AM Lidocaine Injection [facility] [address]-34 , Lot # [id number] Exp 03/12/2012 Reviewed 10/01/2010 12:00 AM DRAIN/INJ JOINT/BURSA W/O US Reviewed 04/10/2014 12:00 AM Kenalog 40 Mg Im/C'abida Reviewed 04/10/2014 12:00 AM Rocephin 1 gram [facility]#4614-7298-98 Reviewed 10/24/2010 12:00 AM COMPLETE CBC W/AUTO [...] Influenza 08/27/2016 sanofi pasteur PMC Fluzone Quadrivalent [id number] Intramuscular Left Deltoid 08/27/2016 05/18/2015 141 History [...] Number Policy Group Number Start Date BCBS [facility] [id number] Saturday, 2009 Medicare RHC Medicare [facility] [id number] N/A Medicare Part A Medicare Part A [id number] Thursday, 2011 Medicare Part B Medicare Secondary [id number] N/A Medicare Part A zzzMedicare A Secondary [id number] N/A Medicare Part A Medicare - Lab/Xray [id number] Thursday, May 12, 2011 History of Encounters Visit Date Visit Type Provider 11/11/2016 Office visit Kurt Navas MD 08/27/2016 Office visit Kurt Navas MD 06/26/2016 Office visit Kurt Navas MD 06/17/2016 Office visit Trina Deluna PERMIT COORDINATOR 06/15/2016 Office visit Janae CrisostomoDonald Wise PERMIT COORDINATOR 03/27/2016 Office visit Kurt Navas MD 01/20/2016 Office visit Charlotte Gilbert PERMIT COORDINATOR 01/18/2016 Office visit Kurt Navas MD 12/04/2015 Office visit Kurt Navas MD 11/21/2015 Office visit Kurt Navas MD 09/07/2015 Office visit Charlotte Gilbert PERMIT COORDINATOR 07/25/2015 Office visit Trina Deluna PERMIT COORDINATOR 05/29/2015 Office visit Bernardino De La Garza PERMIT COORDINATOR 03/29/2015 Office visit Kurt Navas MD 12/12/2014 [...] 10/20/2011 Office visit Kurt Navas MD 05/12/2011 [facility] Thao Burkett MD 04/22/2011 Office visit [...]
--- OUTSIDE RECORDS SUMMARY | 2018-03-29 10:03 | XMS REPORT ---
Author Charlotte Calle [facility] Address [address] [place] [id number] Care Team Providers Care Instrument Technologist Name Role Phone Charlotte Gilbert PCP Allergies and Adverse Reactions Name Reaction Notes NO KNOWN DRUG ALLERGIES Plan of Treatment Not available. Medications Active Name Start Date Estimated Completion Date SIG Comments Lyrica 75 mg oral capsule 05/30/2015 11/26/2015 take 1 capsule (75 mg) by oral route 2 times per day for 30 days Requip oral hydrocodone-acetaminophen 5-325 mg oral tablet 07/25/2015 take 1 tablet by oral route every 6 hours as needed for pain azithromycin 250 mg oral tablet 09/07/2015 09/14/2015 take 2 tablets (500 mg ) by oral route once daily x 7 days promethazine-codeine 6.25-10 mg/5 mL oral syrup 09/07/2015 09/14/2015 take 5 milliliters by oral route every 4 hours as needed, not to exceed 30 mL in 24 hours for 7 days Name Start Date Expiration Date SIG [...] a day (at bedtime) for 14 days Discontinued Name Start Date Discontinued Date [...] oral route every 12 hours Lidoderm 5 %(700 mg/patch) topical adhesive patch,medicated 12/12/2014 apply 1 patch [...] HC BMI BSA BMI Percentile O2 Sat(%) 09/07/2015 5:19:00 PM 130 mmHg 80 mmHg [...] Comments Housing Lives in a house in [place], [place] Lives with spouse disabeled High school graduate Grown Children Alcohol Current - status unknown Denies illicit substance abuse Tobacco Former smoker Did not serve in History of Procedures Date Ordered Description Order Status 07/25/2015 12:00 AM RADEX SPINE LUMBOSACRAL 2/3 VIEWS Returned 09/07/2015 12:00 AM THER/PROPH/DIAG INJ SC/IM Reviewed 09/07/2015 12:00 AM Decadron, Per 1 Mg [facility]# [address]-93 Reviewed 10/20/2011 12:00 AM Phenergan 50 Mg Im [id number] Reviewed 08/05/2012 12:00 AM X-RAY EXAM OF [...] Reviewed 10/01/2010 12:00 AM Kenalog 40 Mg Im-[facility]#4513-2449-79 Lot #[id number] Exp 2011 Reviewed 10/01/2010 12:00 AM HOT OR COLD PACKS THERAPY Reviewed 10/01/2010 12:00 AM Lidocaine Injection [facility] [address]-31 , Lot # [id number] Exp 03/12/2012 Reviewed 10/01/2010 12:00 AM DRAIN/INJ JOINT/BURSA W/O US Reviewed 04/10/2014 12:00 AM Kenalog 40 Mg Im/C'abida Reviewed 04/10/2014 12:00 AM Rocephin 1 gram [facility]#9031-1673-61 Reviewed 10/24/2010 12:00 AM COMPLETE CBC W/AUTO [...] 2015 5:20PM Wheezing Sep 07 2015 5:20PM Payers Insurance Name Company Name Plan Name Plan Number Policy Number Policy Group Number Start Date [facility] [id number] Saturday, 2009 Medicare Part A Medicare A Secondary [id number] N/A Medicare Part A Medicare Part A [id number] Thursday, 2011 Medicare Part B Medicare Secondary [id number] N/A History of Encounters Visit Date Visit Type Provider 09/07/2015 Office visit Charlotte Gilbert STATION MECHANIC APPRENTICE 07/25/2015 Office visit Trina Deluna STATION MECHANIC APPRENTICE 05/29/2015 Office visit Bernardino De La Garza STATION MECHANIC APPRENTICE 03/29/2015 Office visit Kurt Navas MD 12/12/2014 [...] 10/18/2012 Office visit Jin Duran MD 10/07/2012 [facility] Jin Duran MD 09/28/2012 Office visit Jin Duran MD 09/15/2012 Office visit Jin Duran MD 09/08/2012 Office visit Jin Duran MD 09/01/2012 Office visit Jin Duran MD 08/25/2012 [facility] Jin Duran MD 08/17/2012 Office visit Jin Duran MD 08/11/2012 Office visit Jin Duran MD 08/09/2012 Office visit Kurt Navas MD 08/05/2012 Office visit Kurt Navas MD 07/29/2012 Office visit Kurt Navas MD 01/05/2012 [facility] Thao Burkett MD 10/20/2011 Office visit Kurt Navas MD 05/12/2011 [facility] Thao Burkett MD 04/22/2011 Office visit [...]
--- OUTSIDE RECORDS SUMMARY | 2018-03-29 10:04 | XMS REPORT ---
Author Author Kurt Navas [facility] Address [address] [place] [id number] Care Team Providers Care Band And Cuff Cutter Name Role Phone Kurt Navas PCP Unavailable Allergies and Adverse Reactions Name Reaction Notes NO KNOWN DRUG ALLERGIES Plan of Treatment Planned Activity Comments Planned Date Planned Time Plan/Goal X-RAY EXAM OF ANKLE 06/26/2016 12:00 AM Medications Active Name Start Date Estimated Completion [...] FOUR TIMES DAILY . TITRATE DIRECTED ON PEREZ Dulcolax (bisacodyl) 10 mg rectal suppository 10/20/2011 [...] Comments Housing Lives in a house in [place], [place] Lives with spouse disabeled High school graduate Grown Children Alcohol Current - status unknown Denies illicit substance abuse Tobacco Former smoker Did not serve in History of Procedures Date Ordered Description Order Status 07/25/2015 12:00 AM RADEX SPINE LUMBOSACRAL 2/3 VIEWS Returned 09/07/2015 12:00 AM THER/PROPH/DIAG INJ SC/IM Reviewed 09/07/2015 12:00 AM Decadron, Per 1 Mg [facility]# [address]-00 Reviewed 09/07/2015 12:00 AM Depo-Medrol 40mg Reviewed 10/20/2011 12:00 AM Phenergan 50 Mg Im [id number] Reviewed 08/05/2012 12:00 AM X-RAY EXAM OF [...] AM Kenalog 40 Mg Im-[facility]#2381-0010-02 Lot #[id number] Exp 2011 Reviewed 10/01/2010 12:00 AM HOT OR COLD PACKS THERAPY Reviewed 10/01/2010 12:00 AM Lidocaine Injection [facility] [address]-94 , Lot # [id number] Exp 03/12/2012 Reviewed 10/01/2010 12:00 AM DRAIN/INJ JOINT/BURSA W/O US Reviewed 04/10/2014 12:00 AM Kenalog 40 Mg Im/C'abida Reviewed 04/10/2014 12:00 AM Rocephin 1 gram [facility]#7714-9800-71 Reviewed 10/24/2010 12:00 AM COMPLETE CBC W/AUTO [...] Number Policy Group Number Start Date BCBS [facility] [id number] Saturday, 2009 Medicare Part A Medicare [facility] [id number] N/A Medicare Part A Medicare Part A [id number] Thursday, 2011 Medicare Part B Medicare Secondary [id number] N/A Medicare Part A zzzMedicare A Secondary [id number] N/A Medicare Part A Medicare - Lab/Xray [id number] Thursday, May 12, 2011 History of Encounters Visit Date Visit Type Provider 06/26/2016 Office visit Kurt Navas MD 06/17/2016 Office visit Trina Deluna PLAY LEADER 06/15/2016 Office visit Janae Wise PLAY LEADER 03/27/2016 Office visit Kurt Navas MD 01/20/2016 Office visit Charlotte Gilbert PLAY LEADER 01/18/2016 Office visit Kurt Navas MD 12/04/2015 Office visit Kurt Navas MD 11/21/2015 Office visit Kurt Navas MD 09/07/2015 Office visit Charlotte Gilbert PLAY LEADER 07/25/2015 Office visit Trina Deluna PLAY LEADER 05/29/2015 Office visit Bernardino De La Garza PLAY LEADER 03/29/2015 Office visit Kurt Navas MD 12/12/2014 [...] 10/20/2011 Office visit Kurt Navas MD 05/12/2011 [facility] Thao Burkett MD 04/22/2011 Office visit Kurt Navas MD 04/15/2011 Office visit Trina Deluna PLAY LEADER 02/18/2011 Office visit Kurt Navas MD 12/05/2010 [...]
--- OUTSIDE RECORDS SUMMARY | 2018-03-29 10:05 | XMS REPORT ---
Author Author Trina Deluna [facility] Address [address] [place] [phone] Care Team Providers Care Senior Security Architect Name Role Phone Trina Deluna PCP Unavailable [...] every 6 hours as needed for pain Name Start Date Expiration Date SIG Comments [...] HC BMI BSA BMI Percentile O2 Sat(%) 07/25/2015 2:34:00 PM 138 mmHg 78 mmHg [...] Comments Housing Lives in a house in [place], [place] Lives with spouse disabeled High school graduate Grown Children Alcohol Current - status unknown Denies illicit substance abuse Tobacco Former smoker Did not serve in History of Procedures Date Ordered Description Order Status 07/25/2015 12:00 AM RADEX SPINE LUMBOSACRAL 2/3 VIEWS Returned 10/20/2011 12:00 AM Phenergan 50 Mg Im [id number] Reviewed 08/05/2012 12:00 AM X-RAY EXAM OF [...] Reviewed 10/01/2010 12:00 AM Kenalog 40 Mg Im-[facility]#0030-2328-47 Lot #[id number] Exp 2011 Reviewed 10/01/2010 12:00 AM HOT OR COLD PACKS THERAPY Reviewed 10/01/2010 12:00 AM Lidocaine Injection [facility] [address]-20 , Lot # [id number] Exp 03/12/2012 Reviewed 10/01/2010 12:00 AM DRAIN/INJ JOINT/BURSA W/O US Reviewed 04/10/2014 12:00 AM Kenalog 40 Mg Im/C'abida Reviewed 04/10/2014 12:00 AM Rocephin 1 gram [facility]#2992-1557-67 Reviewed 10/24/2010 12:00 AM COMPLETE CBC W/AUTO [...] pain without sciatica Jul 25 2015 2:36PM Payers Insurance Name Company Name Plan Name Plan Number Policy Number Policy Group Number Start Date Bcbs [facility] [id number] Saturday, 2009 Medicare Part A Medicare A Secondary [id number] N/A Medicare Part A Medicare Part A [id number] Thursday, 2011 Medicare Part B Medicare Secondary [id number] N/A History of Encounters Visit Date Visit Type Provider 07/25/2015 Office visit Trina Deluna AIRPORT RAMP SUPERVISOR 05/29/2015 Office visit Bernardino De La Garza AIRPORT RAMP SUPERVISOR 03/29/2015 Office visit Kurt Navas MD 12/12/2014 [...] 10/18/2012 Office visit Jin Duran MD 10/07/2012 [facility] Jin Duran MD 09/28/2012 Office visit Jin Duran MD 09/15/2012 Office visit Jin Duran MD 09/08/2012 Office visit Jin Duran MD 09/01/2012 Office visit Jin Duran MD 08/25/2012 [facility] Jin Duran MD 08/17/2012 Office visit Jin Duran MD 08/11/2012 Office visit Jin Duran MD 08/09/2012 Office visit Kurt Navas MD 08/05/2012 Office visit Kurt Navas MD 07/29/2012 Office visit Kurt Navas MD 01/05/2012 [facility] Thao Burkett MD 10/20/2011 Office visit Kurt Navas MD 05/12/2011 [facility] Thao Burkett MD 04/22/2011 Office visit Kurt Navas MD 04/15/2011 Office visit Trina Deluna AIRPORT RAMP SUPERVISOR 02/18/2011 Office visit Kurt Navas MD 12/05/2010 [...]
--- OUTSIDE RECORDS SUMMARY | 2018-03-29 10:07 | XMS REPORT ---
Author Author Kurt Navas [facility] Address [address] [place] [phone] Care Team Providers Care Ring Facer Name Role Phone Kurt Navas PCP Unavailable Kurt Navas PreferredProvider Unavailable Allergies and Adverse Reactions Name Reaction Notes NO KNOWN DRUG ALLERGIES Plan of Treatment Planned Activity Comments Planned Date Planned Time Plan/Goal Flu vaccine, 3yrs & older, Quadrivalent (multi-dose vial) 08/27/2016 12: 00 AM Medications Active Name Start Date Estimated Completion Date SIG Comments tramadol oral Lyrica 75 mg oral capsule 06/10/2016 12/07/2016 take 1 capsule (75 mg) by oral route 2 times per day for 30 days baclofen 10 mg oral tablet take 1 tablet (10 mg) by oral route 3 times per day Movantik 25 mg oral tablet 08/27/2016 12/25/2016 take 1 tablet (25 mg) by oral route once daily in the morning for 30 days Nucynta ER 100 mg oral tablet extended release 12 hr 08/27/2016 09/26/2016 take 1 tablet (100 mg) by oral [...] as needed for pain Mobic oral 08/27/2016 Neurontin 300 mg oral capsule 08/27/2016 Problem List Description Status Onset Heart disease Active Hypertension Active Vital Signs Date Time BP-Sys(mm[Hg] BP-Sarah(mm[Hg]) HR(bpm) RR(rpm) Temp WT HT HC BMI BSA BMI Percentile O2 Sat(%) 08/27/2016 8:44:00 AM 130 mmHg 68 mmHg [...] Comments Housing Lives in a house in [place], [place] Lives with spouse disabeled High school graduate Grown Children Alcohol Current - status unknown Denies illicit substance abuse Tobacco Former smoker Did not serve in History of Procedures Date Ordered Description Order Status 07/25/2015 12:00 AM RADEX SPINE LUMBOSACRAL 2/3 VIEWS Returned 09/07/2015 12:00 AM THER/PROPH/DIAG INJ SC/IM Reviewed 09/07/2015 12:00 AM Decadron, Per 1 Mg [facility] 3[facility]# [address]-97 Reviewed 09/07/2015 12:00 AM Depo-Medrol 40mg Reviewed 10/20/2011 12:00 AM Phenergan 50 Mg Im [id number] Reviewed 06/26/2016 12:00 AM X-RAY EXAM OF [...] Reviewed 10/01/2010 12:00 AM Kenalog 40 Mg Im-[facility]#5184-8740-43 Lot #[id number] Exp 2011 Reviewed 10/01/2010 12:00 AM HOT OR COLD PACKS THERAPY Reviewed 10/01/2010 12:00 AM Lidocaine Injection [facility][NOTE 3] [address]-16 , Lot # [id number] Exp 03/12/2012 Reviewed 10/01/2010 12:00 AM DRAIN/INJ JOINT/BURSA W/O US Reviewed 04/10/2014 12:00 AM Kenalog 40 Mg Im/C'abida Reviewed 04/10/2014 12:00 AM Rocephin 1 gram [facility][NOTE 3]#5012-2148-90 Reviewed 10/24/2010 12:00 AM COMPLETE CBC W/AUTO [...] MANUAL DIFF NOT IND History Of Immunizations Not available. History of [...] Other chronic pain Aug 27 2016 8:53AM Payers Insurance Name Company Name Plan Name Plan Number Policy Number Policy Group Number Start Date [facility] [id number] Saturday, 2009 Medicare Part A Medicare [facility] [id number] N/A Medicare Part A Medicare Part A [id number] Thursday, 2011 Medicare Part B Medicare Secondary [id number] N/A Medicare Part A zzzMedicare A Secondary [id number] N/A Medicare Part A Medicare - Lab/Xray [id number] Thursday, May 12, 2011 History of Encounters Visit Date Visit Type Provider 08/27/2016 Office visit Kurt Navas MD 06/26/2016 Office visit Kurt Navas MD 06/17/2016 Office visit Trina Deluna WHARF LABOURER 06/15/2016 Office visit Janae Wise WHARF LABOURER 03/27/2016 Office visit Kurt Navas MD 01/20/2016 Office visit Charlotte Gilbert WHARF LABOURER 01/18/2016 Office visit Kurt Navas MD 12/04/2015 Office visit Kurt Navas MD 11/21/2015 Office visit Kurt Navas MD 09/07/2015 Office visit Charlotte Gilbert WHARF LABOURER 07/25/2015 Office visit Trina Deluna WHARF LABOURER 05/29/2015 Office visit Bernardino De La Garza WHARF LABOURER 03/29/2015 Office visit Kurt Navas MD 12/12/2014 [...] Navas MD 04/15/2011 Office visit Trina Deluna WHARF LABOURER 02/18/2011 Office visit Kurt Navas MD 12/05/2010 [...]
--- OUTSIDE RECORDS SUMMARY | 2018-03-29 10:08 | XMS REPORT ---
Author Author Kurt Navas [facility] Address [address] [place] [phone] Care Team Providers Care Aquatic Director Name Role Phone Kurt Navas PCP Unavailable Allergies and Adverse Reactions Name Reaction Notes NO KNOWN DRUG ALLERGIES Plan of Treatment Not available. Medications Active Name Start Date Estimated Completion Date SIG Comments Lyrica 75 mg oral capsule 12/10/2015 06/07/2016 take 1 capsule (75 mg) by oral route 2 times per day for 30 days Mobic oral tramadol oral Neurontin 300 mg oral capsule oxycodone 15 mg oral tablet 03/27/2016 04/26/2016 take 1 tablet by oral route every 6 hours as needed for 30 days ropinirole 4 mg oral tablet 03/27/2016 08/24/2016 take 1 tablet by oral route 3 times a day as needed for 30 days Name Start Date Expiration [...] oral route once daily x 5 days Discontinued Name Start Date Discontinued Date [...] HC BMI BSA BMI Percentile O2 Sat(%) 03/27/2016 9:12:00 AM 118 mmHg 78 mmHg [...] Comments Housing Lives in a house in [place], [place] Lives with spouse disabeled High school graduate Grown Children Alcohol Current - status unknown Denies illicit substance abuse Tobacco Former smoker Did not serve in History of Procedures Date Ordered Description Order Status 07/25/2015 12:00 AM RADEX SPINE LUMBOSACRAL 2/3 VIEWS Returned 09/07/2015 12:00 AM THER/PROPH/DIAG INJ SC/IM Reviewed 09/07/2015 12:00 AM Decadron, Per 1 Mg [facility]# [address]-01 Reviewed 09/07/2015 12:00 AM Depo-Medrol 40mg Reviewed 10/20/2011 12:00 AM Phenergan 50 Mg Im [id number] Reviewed 08/05/2012 12:00 AM X-RAY EXAM OF [...] Reviewed 10/01/2010 12:00 AM Kenalog 40 Mg Im-[facility]#7065-5955-57 Lot #[id number] Exp 2011 Reviewed 10/01/2010 12:00 AM HOT OR COLD PACKS THERAPY Reviewed 10/01/2010 12:00 AM Lidocaine Injection [facility] [address]-52 , Lot # [id number] Exp 03/12/2012 Reviewed 10/01/2010 12:00 AM DRAIN/INJ JOINT/BURSA W/O US Reviewed 04/10/2014 12:00 AM Kenalog 40 Mg Im/C'abida Reviewed 04/10/2014 12:00 AM Rocephin 1 gram [facility]#8142-2850-77 Reviewed 10/24/2010 12:00 AM COMPLETE CBC W/AUTO [...] Low Back Pain Mar 27 2016 9:14AM Payers Insurance Name Company Name Plan Name Plan Number Policy Number Policy Group Number Start Date [facility] [id number] Saturday, 2009 Medicare Part A Medicare RHC [id number] N/A Medicare Part A Medicare Part A [id number] Thursday, 2011 Medicare Part B Medicare Secondary [id number] N/A Medicare Part A zzzMedicare A Secondary [id number] N/A Medicare Part A Medicare - Lab/Xray [id number] Thursday, May 12, 2011 History of Encounters Visit Date Visit Type Provider 03/27/2016 Office visit Kurt Navas MD 01/20/2016 Office visit Charlotte Gilbert FURNITURE FINISHER HELPER 01/18/2016 Office visit Kurt Navas MD 12/04/2015 Office visit Kurt Navas MD 11/21/2015 Office visit Kurt Navas MD 09/07/2015 Office visit Charlotte Gilbert FURNITURE FINISHER HELPER 07/25/2015 Office visit Trina Deluna FURNITURE FINISHER HELPER 05/29/2015 Office visit Bernardino De La Garza FURNITURE FINISHER HELPER 03/29/2015 Office visit Kurt Navas MD 12/12/2014 [...] 10/20/2011 Office visit Kurt Navas MD 05/12/2011 [facility] Thao Burkett MD 04/22/2011 Office visit [...]
--- OUTSIDE RECORDS SUMMARY | 2018-03-29 10:09 | XMS REPORT ---
Author Author Trina Deluna [facility] Address [address] [place] [phone] Care Team Providers Care Currency Exchange Specialist Name Role Phone Trina Deluna PCP Unavailable [...] Comments Housing Lives in a house in [place], [place] Lives with spouse disabeled High school graduate Grown Children Alcohol Current - status unknown Denies illicit substance abuse Tobacco Former smoker Did not serve in History of Procedures Date Ordered Description Order Status 07/25/2015 12:00 AM RADEX SPINE LUMBOSACRAL 2/3 VIEWS Returned 10/20/2011 12:00 AM Phenergan 50 Mg Im [id number] Reviewed 08/05/2012 12:00 AM X-RAY EXAM OF [...] Reviewed 10/01/2010 12:00 AM Kenalog 40 Mg Im-[facility]#6195-0775-37 Lot #[id number] Exp 2011 Reviewed 10/01/2010 12:00 AM HOT OR COLD PACKS THERAPY Reviewed 10/01/2010 12:00 AM Lidocaine Injection [facility] [address]-46 , Lot # [id number] Exp 03/12/2012 Reviewed 10/01/2010 12:00 AM DRAIN/INJ JOINT/BURSA W/O US Reviewed 04/10/2014 12:00 AM Kenalog 40 Mg Im/C'abida Reviewed 04/10/2014 12:00 AM Rocephin 1 gram [facility]#6893-2587-92 Reviewed 10/24/2010 12:00 AM COMPLETE CBC W/AUTO [...] Start Date Bcbs [facility] [id number] Saturday, 2009 Medicare Part A Medicare A Secondary [id number] N/A Medicare Part A Medicare Part A [id number] Thursday, 2011 Medicare Part B Medicare Secondary [id number] N/A History of Encounters Visit Date Visit Type Provider 07/25/2015 Office visit Trina Deluna SHELLFISH DREDGE OPERATOR 05/29/2015 Office visit Bernardino De La Garza SHELLFISH DREDGE OPERATOR 03/29/2015 Office visit Kurt Navas MD [...] 10/18/2012 Office visit Jin Duran MD 10/07/2012 [facility] Jin Duran MD 09/28/2012 Office visit Jin Duran MD 09/15/2012 Office visit Jin Duran MD 09/08/2012 Office visit Jin Duran MD 09/01/2012 Office visit Jin Duran MD 08/25/2012 [facility] Jin Duran MD 08/17/2012 Office visit Jin Duran MD 08/11/2012 Office visit Jin Duran MD 08/09/2012 Office visit Kurt Navas MD 08/05/2012 Office visit Kurt Navas MD 07/29/2012 Office visit Kurt Navas MD 01/05/2012 [facility] Thao Burkett MD 10/20/2011 Office visit Kurt Navas MD 05/12/2011 [facility] Thao Burkett MD 04/22/2011 Office visit Kurt Navas MD 04/15/2011 Office visit Trina Deluna SHELLFISH DREDGE OPERATOR 02/18/2011 Office visit Kurt Navas MD 12/05/2010 [...]
[2018-03-29] MEDS ORDERED: GENTAMICIN 40 MG/ML 2 ML INJ SDV ONE (10:10)
[2018-03-29] MEDS ORDERED: VANCOMYCIN 1000 MG/VIAL ONE (10:10)
[2018-03-29] MEDS ORDERED: BUP/EPI 0.5% 1:200,000 (SENSORCAINE) 30 ML VIAL ONE (10:11)
--- OUTSIDE RECORDS SUMMARY | 2018-03-29 10:11 | XMS REPORT ---
Author Author Kurt Navas [facility] Address [address] [place] [id number] Care Team Providers Care Furniture Inspector Name Role Phone Kurt Navas PCP Unavailable [...] HC BMI BSA BMI Percentile O2 Sat(%) 01/18/2016 10:31:00 AM 120 mmHg 88 mmHg [...] Comments Housing Lives in a house in [place], [place] Lives with spouse disabeled High school graduate Grown Children Alcohol Current - status unknown Denies illicit substance abuse Tobacco Former smoker Did not serve in History of Procedures Date Ordered Description Order Status 07/25/2015 12:00 AM RADEX SPINE LUMBOSACRAL 2/3 VIEWS Returned 09/07/2015 12:00 AM THER/PROPH/DIAG INJ SC/IM Reviewed 09/07/2015 12:00 AM Decadron, Per [address] [facility]# [address]-18 Reviewed 09/07/2015 12:00 AM Depo-Medrol 40mg Reviewed 10/20/2011 12:00 AM Phenergan 50 Mg Im [id number] Reviewed 08/05/2012 12:00 AM X-RAY EXAM OF [...] Reviewed 10/01/2010 12:00 AM Kenalog 40 Mg Im-[facility]#9069-7413-16 Lot #[id number] Exp 2011 Reviewed 10/01/2010 12:00 AM HOT OR COLD PACKS THERAPY Reviewed 10/01/2010 12:[address] [facility] [address]-54 , Lot # [id number] Exp 03/12/2012 Reviewed 10/01/2010 12:00 AM DRAIN/INJ JOINT/BURSA W/O US Reviewed 04/10/2014 12:00 AM Kenalog 40 Mg Im/C'abida Reviewed 04/10/2014 12:[address] [facility]#5711-0964-52 Reviewed 10/24/2010 12:00 AM COMPLETE CBC W/AUTO [...] 2015 3:53PM Pharyngitis Jan 18 2016 10:36AM Payers Insurance Name Company Name Plan Name Plan Number Policy Number Policy Group Number Start Date [facility] [id number] Saturday, 2009 Medicare Part A Medicare A Secondary [id number] N/A Medicare Part A Medicare Part A [id number] Thursday, 2011 Medicare Part B Medicare Secondary [id number] N/A History of Encounters Visit Date Visit Type Provider 01/18/2016 Office visit Kurt Navas MD 12/04/2015 Office visit Kurt Navas MD 11/21/2015 Office visit Kurt Navas MD 09/07/2015 Office visit Charlotte Gilbert INFORMATION TECHNOLOGY ADMINISTRATOR 07/25/2015 Office visit Trina Deluna INFORMATION TECHNOLOGY ADMINISTRATOR 05/29/2015 Office visit Bernardino De La Garza INFORMATION TECHNOLOGY ADMINISTRATOR 03/29/2015 Office visit Kurt Navas MD 12/12/2014 Office visit Kurt Navas MD 08/21/2014 Office visit Kurt Navas MD 08/08/2014 Office visit Kurt Navas MD 04/24/2014 Office visit Krut Navas MD 04/10/2014 Office visit Kurt Navas MD 11/28/2013 Office visit Kurt Navas MD 07/18/2013 Office visit Kurt Navas MD 03/01/2013 Office visit Kurt Navas MD 11/01/2012 Office visit Jin Duran MD 10/18/2012 Office visit Jin Duran MD 10/07/2012 Hospital Jin Druan MD 09/28/2012 Office visit Jin Duran MD 09/15/2012 Office visit Jin Duran MD 09/08/2012 Office visit Jin Duran MD 09/01/2012 Office visit Jin Duran MD 08/25/2012 Hospital Jin Duran MD 08/17/2012 Office visit Jin Duran MD 08/11/2012 Office visit Jin Duran MD 08/09/2012 Office visit Kurt Navas MD 08/05/2012 Office visit Kurt Navas MD 07/29/2012 Office visit Kurt Navas MD 01/05/2012 [facility] Thao Burkett MD 10/20/2011 Office visit Kurt Navas MD 05/12/2011 [facility] Thao Burkett MD 04/22/2011 Office visit Kurt Navas MD 04/15/2011 Office visit Trina Deluna INFORMATION TECHNOLOGY ADMINISTRATOR 02/18/2011 Office visit Kurt Navas MD 12/05/2010 [...]
--- OUTSIDE RECORDS SUMMARY | 2018-03-29 10:12 | XMS REPORT ---
Author Author Kurt Navas [facility] Address [address] [place] [id number] Care Team Providers Care Status Controller Name Role Phone Kurt Navas PCP Kurt Navas PreferredProvider Allergies and Adverse Reactions Name Reaction Notes NO KNOWN DRUG ALLERGIES Plan of Treatment Not available. Medications Active Name Start Date Estimated Completion Date SIG Comments ropinirole 4 mg oral tablet 10/08/2016 TAKE 1 TABLET BY ORAL ROUTE 3 TIMES A DAY NEEDED FOR 30 DAYS Neurontin 300 mg oral capsule Saxenda 3 mg/0.5 mL (18 mg/3 mL) subcutaneous pen injector 06/12/2017 inject 3 mg by subcutaneous route once daily in the abdomen, thigh, or upper arm Lyrica 75 mg oral capsule 07/14/2017 01/10/2018 take 1 capsule (75 mg) by oral route 2 times per day for 30 days ropinirole 4 mg oral tablet 10/27/2017 03/26/2018 TAKE 1 TABLET BY MOUTH THREE TIMES DAILY NEEDED promethazine-codeine 6.25-10 mg/5 mL oral syrup 11/16/2017 take 5 milliliters by oral route every 6 hours as needed, not to exceed 30 mL in 24 hours Nucynta ER 150 mg oral tablet extended release 12 hr 11/16/2017 take 1 tablet (150 mg) by oral route every 12 hours Name Start Date Expiration Date SIG [...] daily in the morning for 30 days gabapentin 100 mg oral capsule 11/12/2017 11/12/2017 1 CAPSULE BY MOUTH THREE TIMES A DAY Discontinued Name Start Date Discontinued Date SIG [...] mg) by oral route every 6 hours amoxicillin 500 mg oral capsule 07/09/2017 11/16/2017 take 2 capsules by oral route 3 times a day for 5 days Problem List Description Status Onset Heart disease Active Hypertension Active Vital Signs Date Time BP-Sys(mm[Hg] BP-Sarah(mm[Hg]) HR(bpm) RR(rpm) Temp WT HT HC BMI BSA BMI Percentile O2 Sat(%) 11/16/2017 9:26:00 AM 122 mmHg 96 mmHg 81 bpm 16 rpm 97.5 F 224.5 lbs 67 in 35.16 kg/m2 2.19 m2 96 % 07/09/2017 9:54:00 AM 132 mmHg 74 mmHg 97 bpm 18 rpm 97.9 F 229 lbs 66 in 36.9612 kg/m 2.1993 m 97 % 06/12/2017 9:11:00 AM 132 mmHg 72 mmHg 93 bpm 18 rpm 97.8 F 224.25 lbs 66 in 36.19 kg/m2 2.18 m2 99 % 02/18/2017 9:00:00 AM 122 mmHg 70 mmHg 92 bpm 16 rpm 98.3 F 219 lbs 66 in 35.3472 kg/m 2.1508 m 97 % 11/11/2016 8:49:00 AM 134 mmHg [...] Comments Housing Lives in a house in [place], [place] Lives with spouse disabeled High school graduate Grown Children Alcohol Current - status unknown Denies illicit substance abuse Tobacco Former smoker Did not serve in History of Procedures Date Ordered Description Order Status 07/25/2015 12:00 AM RADEX SPINE LUMBOSACRAL 2/3 VIEWS Reviewed 09/07/2015 12:00 AM THER/PROPH/DIAG INJ SC/IM Reviewed 09/07/2015 12:00 AM Decadron, Per [address] [facility]# [address]-58 Reviewed 09/07/2015 12:00 AM Depo-Medrol 40mg Reviewed 10/20/2011 12:00 AM Phenergan 50 Mg Im [id number] Reviewed 10/20/2011 12:00 AM Phenergan 50 Mg Im [id number] Reviewed 06/26/2016 12:00 AM X-RAY EXAM OF [...] Kenalog 40 Mg Im-[facility]#8318-3685-89 Lot #[id number] Exp 2011 Reviewed 10/01/2010 12:00 AM HOT OR COLD PACKS THERAPY Reviewed 10/01/2010 12:00 AM Lidocaine Injection [facility] [address]-97 , Lot # [id number] Exp 03/12/2012 Reviewed 10/01/2010 12:00 AM DRAIN/INJ JOINT/BURSA W/O US Reviewed 04/10/2014 12:00 AM Kenalog 40 Mg Im/C'abida Reviewed 04/10/2014 12:00 AM Rocephin [address] [facility]#4737-3722-23 Reviewed 10/24/2010 12:00 AM COMPLETE CBC W/AUTO [...] Influenza 08/27/2016 sanofi pasteur PMC Fluzone Quadrivalent [id number] Intramuscular Left Deltoid 08/27/2016 05/18/2015 141 History [...] 2017 9:56AM Sinusitis Jul 09 2017 9:56AM Coronavirus infection Nov 16 2017 9:27AM Payers Insurance Name Company Name Plan Name Plan Number Policy Number Policy Group Number Start Date [facility] [id number] Saturday, 2009 Medicare RHC Medicare RHC [id number] N/A Medicare Part A Medicare Part A [id number] Thursday, 2011 Medicare Part B Medicare Secondary [id number] N/A Medicare Part A zzzMedicare A Secondary [id number] N/A Medicare Part A Medicare - Lab/Xray [id number] Thursday, May 12, 2011 History of Encounters Visit Date Visit Type Provider 11/16/2017 Office visit Kurt Navas MD 07/09/2017 Office visit Kurt Navas MD 06/12/2017 Office visit Kurt Navas MD 02/18/2017 Office visit Kurt Navas MD 11/11/2016 Office visit Kurt Navas MD 08/27/2016 Office visit Kurt Navas MD 06/26/2016 Office visit Kurt Navas MD 06/17/2016 Office visit Trina Deluna MULTISKILL OPERATOR 06/15/2016 Office visit Janae Wise MULTISKILL OPERATOR 03/27/2016 Office visit Kurt Navas MD 01/20/2016 Office visit Charlotte Gilbert MULTISKILL OPERATOR 01/18/2016 Office visit Kurt Navas MD 12/04/2015 Office visit Kurt Navas MD 11/21/2015 Office visit Kurt Navas MD 09/07/2015 Office visit Charlotte Gilbert MULTISKILL OPERATOR 07/25/2015 Office visit Trina Deluna MULTISKILL OPERATOR 05/29/2015 Office visit Bernardino De La Garza MULTISKILL OPERATOR 03/29/2015 Office visit Kurt Navas MD [...]
--- OUTSIDE RECORDS SUMMARY | 2018-03-29 10:14 | XMS REPORT ---
Author Author Kurt Navas [facility] Address [address] [place] [id number] Care Team Providers Care Medicaid Billing Specialist Name Role Phone Kurt Navas PCP Unavailable Kurt Navas PreferredProvider Unavailable Allergies and Adverse Reactions Name Reaction Notes NO KNOWN DRUG ALLERGIES Plan of Treatment Not available. Medications Active Name Start Date Estimated Completion Date SIG Comments ropinirole 4 mg oral tablet 10/08/2016 TAKE 1 TABLET BY ORAL ROUTE 3 TIMES A DAY NEEDED FOR 30 DAYS Lyrica 75 mg oral capsule 12/22/2016 06/20/2017 take 1 capsule (75 mg) by oral route 2 times per day for 30 days ropinirole 4 mg oral tablet 04/13/2017 TAKE 1 TABLET BY MOUTH THREE TIMES DAILY NEEDED Neurontin 300 mg oral capsule Nucynta ER 150 mg oral tablet extended release 12 hr 06/12/2017 07/12/2017 take 1 tablet (150 mg) by oral route every 12 hours for 30 days Saxenda 3 mg/0.5 mL (18 mg/3 mL) subcutaneous pen injector 06/12/2017 inject 3 mg by subcutaneous route once daily in the abdomen, thigh, or upper arm Name Start Date Expiration Date SIG Comments [...] HC BMI BSA BMI Percentile O2 Sat(%) 06/12/2017 9:11:00 AM 132 mmHg 72 mmHg [...] Comments Housing Lives in a house in [place], [place] Lives with spouse disabeled High school graduate Grown Children Alcohol Current - status unknown Denies illicit substance abuse Tobacco Former smoker Did not serve in History of Procedures Date Ordered Description Order Status 07/25/2015 12:00 AM RADEX SPINE LUMBOSACRAL 2/3 VIEWS Reviewed 09/07/2015 12:00 AM THER/PROPH/DIAG INJ SC/IM Reviewed 09/07/2015 12:00 AM Decadron, Per [address] [facility]# [address]-18 Reviewed 09/07/2015 12:00 AM Depo-Medrol 40mg Reviewed 10/20/2011 12:00 AM Phenergan 50 Mg Im [id number] Reviewed 10/20/2011 12:00 AM Phenergan 50 Mg Im [id number] Reviewed 06/26/2016 12:00 AM X-RAY EXAM OF [...] Reviewed 10/01/2010 12:00 AM Kenalog 40 Mg Im-[facility]#4700-4765-01 Lot #[id number] Exp 2011 Reviewed 10/01/2010 12:00 AM HOT OR COLD PACKS THERAPY Reviewed 10/01/2010 12:00 AM Lidocaine Injection [facility] [address]-65 , Lot # [id number] Exp 03/12/2012 Reviewed 10/01/2010 12:00 AM DRAIN/INJ JOINT/BURSA W/O US Reviewed 04/10/2014 12:00 AM Kenalog 40 Mg Im/C'abida Reviewed 04/10/2014 12:00 AM Rocephin [address] [facility]#4063-7649-80 Reviewed 10/24/2010 12:00 AM COMPLETE CBC W/AUTO [...] Influenza 08/27/2016 sanofi pasteur PMC Fluzone Quadrivalent [id number] Intramuscular Left Deltoid 08/27/2016 05/18/2015 141 History [...] 9:13AM BMI 36.0-36.9,adult Jun 12 2017 9:13AM Payers Insurance Name Company Name Plan Name Plan Number Policy Number Policy Group Number Start Date BCBS [facility] [id number] Saturday, 2009 Medicare RHC Medicare [facility] [id number] N/A Medicare Part A Medicare Part A [id number] Thursday, 2011 Medicare Part B Medicare Secondary [id number] N/A Medicare Part A zzzMedicare A Secondary [id number] N/A Medicare Part A Medicare - Lab/Xray [id number] Thursday, May 12, 2011 History of Encounters Visit Date Visit Type Provider 06/12/2017 Office visit Kurt Nvaas MD 02/18/2017 Office visit Kurt Navas MD 11/11/2016 Office visit Kurt Navas MD 08/27/2016 Office visit Kurt Navas MD 06/26/2016 Office visit Kurt Navas MD 06/17/2016 Office visit Trina Deluna SET BUILDER 06/15/2016 Office visit Janae Nick Wise SET BUILDER 03/27/2016 Office visit Kurt Navas MD 01/20/2016 Office visit Charlotte Gilbert SET BUILDER 01/18/2016 Office visit Kurt Navas MD 12/04/2015 Office visit Kurt Navas MD 11/21/2015 Office visit Kurt Navas MD 09/07/2015 Office visit Charlotte Gilbert SET BUILDER 07/25/2015 Office visit Trina Deluna SET BUILDER 05/29/2015 Office visit Bernardino De La Garza SET BUILDER 03/29/2015 Office visit Kurt Navas MD [...] Jin Duran MD 09/28/2012 Office visit Jin Druan MD 09/15/2012 Office visit Jin Duran MD [...]
--- OUTSIDE RECORDS SUMMARY | 2018-03-29 10:15 | XMS REPORT ---
Author Author Trina Deluna Organization [facility] Address [address] [place] [id number] Care Team Providers Care Quotation Checker Name Role Phone Trina Deluna PCP Unavailable Allergies and Adverse Reactions Name Reaction Notes NO KNOWN DRUG ALLERGIES Plan of Treatment Planned Activity Comments Planned Date Planned Time Plan/Goal X-RAY EXAM L-S SPINE 11/14 VWS 07/25/2015 12:00 AM Medications Active Name Start Date [...] Comments Housing Lives in a house in [place], [place] Lives with spouse disabeled High school graduate Grown Children Alcohol Current - status unknown Denies illicit substance abuse Tobacco Former smoker Did not serve in History of Procedures Date Ordered Description Order Status 10/20/2011 12:00 AM Phenergan 50 Mg Im [id number] Reviewed 08/05/2012 12:00 AM X-RAY EXAM OF [...] Reviewed 10/01/2010 12:00 AM Kenalog 40 Mg Im-[facility]#3877-4835-87 Lot #[id number] Exp 2011 Reviewed 10/01/2010 12:00 AM HOT OR COLD PACKS THERAPY Reviewed 10/01/2010 12:00 AM Lidocaine Injection [facility] [address]-03 , Lot # [id number] Exp 03/12/2012 Reviewed 10/01/2010 12:00 AM DRAIN/INJ JOINT/BURSA W/O US Reviewed 04/10/2014 12:00 AM Kenalog 40 Mg Im/C'abida Reviewed 04/10/2014 12:00 AM Rocephin 1 gram [facility]#3535-7835-23 Reviewed 10/24/2010 12:00 AM COMPLETE CBC W/AUTO [...] Number Policy Group Number Start Date [facility]cbs [facility] [id number] Saturday, 2009 Medicare Part A Medicare A Secondary [id number] N/A Medicare Part A Medicare Part A [id number] Thursday, 2011 Medicare Part B Medicare Secondary [id number] N/A History of Encounters Visit Date Visit Type Provider 07/25/2015 Office visit Trina Deluna SITE INTERPRETER 05/29/2015 Office visit Bernardino De La Garza SITE INTERPRETER 03/29/2015 Office visit Kurt Navas MD 12/12/2014 [...] 09/01/2012 Office visit Jin Duran MD 08/25/2012 [facility] Jin Duran MD 08/17/2012 Office visit Jin Duran MD 08/11/2012 Office visit Jin Duran MD 08/09/2012 Office visit Kurt Navas MD 08/05/2012 Office visit Kurt Navas MD 07/29/2012 Office visit Kurt Navas MD 01/05/2012 [facility] Thao Burkett MD 10/20/2011 Office visit Kurt Navas MD 05/12/2011 [facility] Thao Burkett MD 04/22/2011 Office visit Kurt Navas MD 04/15/2011 Office visit Trina Deluna SITE INTERPRETER 02/18/2011 Office visit Kurt Navas MD 12/05/2010 [...]
--- OUTSIDE RECORDS SUMMARY | 2018-03-29 10:16 | XMS REPORT ---
Author Author Kurt Navas [facility] Address [address] [place] [phone] Care Team Providers Care Belting Cutter Name Role Phone Kurt Navas PCP Unavailable Allergies and Adverse Reactions Name Reaction Notes NO KNOWN DRUG ALLERGIES Plan of Treatment Not available. Medications Active Name Start Date Estimated Completion Date SIG Comments Ibuprofen Oral Capsule 200 mg As needed ropinirole oral tablet 1 mg 03/29/2015 03/23/2016 take 1 tablet (1 mg) by oral route 1-3 hours before bedtime for 90 days Name Start Date Expiration Date SIG [...] oral route once daily for 4 days Lyrica oral capsule 75 mg 07/04/2014 08/03/2014 take 1 capsule (75 mg) by oral route 2 times per day for 30 days Levaquin oral tablet 500 mg 08/21/2014 [...] tablet by oral route every 6 hours Problem List Description Status Onset Heart disease Active Hypertension Active Vital Signs Date Time BP-Sys(mm[Hg] BP-Sarah(mm[Hg]) HR(bpm) RR(rpm) Temp WT HT HC BMI BSA BMI Percentile O2 Sat(%) 03/29/2015 3:18:00 PM 110 mmHg 82 mmHg [...] Comments Housing Lives in a house in [place], [place] Lives with spouse disabeled High school graduate Grown Children Alcohol Denies illicit substance abuse Tobacco Former smoker Did not serve in History of Procedures Date Ordered Description Order Status 08/05/2012 12:00 AM X-RAY EXAM OF ABDOMEN [...] JOINT/BURSA W/O US Reviewed 10/01/2010 12:00 AM HOT OR COLD PACKS THERAPY Reviewed 10/01/2010 12:00 AM DRAIN/INJ JOINT/BURSA W/O US Reviewed 10/24/2010 12:00 AM COMPLETE CBC W/AUTO [...] X-RAY EXAM KNEE 4 OR MORE Reviewed Results Summary Data and Description Results [...] NEGATIVE -- C DIFF TOXIN NOT DETECTED History Of Immunizations Not available. History of [...] (restless legs syndrome) Mar 29 2015 3:20PM Payers Insurance Name Company Name Plan Name Plan Number Policy Number Policy Group Number Start Date [facility] [id number] Saturday, 2009 Medicare Part A Medicare A Secondary [id number] N/A Medicare Part A Medicare Part A [id number] Thursday, 2011 Medicare Part B Medicare Secondary [id number] N/A History of Encounters Visit Date Visit Type Provider 03/29/2015 Office visit Kurt Navas MD 12/12/2014 [...] 07/29/2012 Office visit Kurt Navas MD 01/05/2012 [facility] Thao Burkett MD 10/20/2011 Office visit Kurt Navas MD 05/12/2011 [facility] Thao Burkett MD 04/22/2011 Office [...]
--- OUTSIDE RECORDS SUMMARY | 2018-03-29 10:16 | XMS REPORT | CCD ---
Author Author MERCEDEZ MCFARLAND Organization Unknown Address [address] [place], [place] [id number] Care Team Providers Care Registered Radiologic Technologist Name Role Phone HANDSHY ERVANESSA MD Attphys HANDSHY ER, VANESSA JAVIER Prisurg Vital Signs Unknown or Not Available. Allergies Allergy Code Allergy Type Reaction Status No Known Allergies 0 No known allergies Active Procedures Procedure Code Procedure Type Date CT LUMBAR W/O CONTRAST 499411581 SNOMED CT 05/25/2016 COMPREHENSIVE METABOLIC PANEL 317821366 SNOMED CT 2015 CBC W/ AUTO DIFF (RFLX MAN DIFF IF IND) 6676000 SNOMED CT 05/25/2016 ^CBC W/AUTO DIFF 2122723 SNOMED CT 05/25/2016 History of Immunizations Unknown or Not Available. Problems Problem Code Start Date Resolved Date Status DEGENERATIVE ARTHRITIS OF RIGHT KNEE 87160 01/28/2012 Active Results COMPREHENSIVE METABOLIC PANEL - Collect Date/Time: 05/25/2016 11:10 Test Name Code Test Result Test Units Test Ref Range GLUCOSE 2345-7 121 MG/DL L=70 H=100 SODIUM 2951-2 139 MEQ/L L=135 H=148 POTASSIUM 2823-3 4.2 MEQ/L L=3.5 H=5.3 CHLORIDE 2075-0 106 MEQ/L L=96 H=110 CO2 2028-9 21 MEQ/L L=22 H=29 BUN 3094-0 16 MG/DL L=8 H=22 CREATININE 2160-0 0.8 MG/DL L=0.6 H=1.6 SGOT/AST 1920-8 17 IU/L L=10 H=40 SGPT/ALT 1742-6 26 IU/L L=8 H=54 ALK PHOS 6768-6 112 IU/L L=35 H=115 TOTAL PROTEIN 2885-2 6.6 G/DL L=5.5 H=8.5 ALBUMIN 1751-7 4.3 G/DL L=3.1 H=5.4 TOTAL BILI 1975-2 0.3 MG/DL L=0.0 H=1.5 CALCIUM 77635-4 9.2 MG/DL L=8.2 H=10.6 AGE 50 yrs GFR NonAA 77 GFR AA 93 eGFR >60 N/A eGFR AA* >60 N/A CBC W/ AUTO DIFF (RFLX MAN DIFF IF IND) - Collect Date/Time: 05/25/2016 11:10 Test Name Code Test Result Test Units Test Ref Range WBC 33565-1 10.4 TH/CMM L=4.5 H=10.8 RBC 789-8 4.52 ML/CMM L=4.20 H=5.40 HGB 718-7 14.3 G/DL L=12.0 H=16.0 HCT 4544-3 42.8 % L=37.0 H=47.0 MCV 95 FL L=81 H=99 MCH 31.6 PG L=27.0 H=33.0 MCHC 33.4 G/DL L=31.0 H=36.0 RDW SD 42 FL L=36 H=50 RDW CV 12.2 % L=0.0 H=14.8 MPV 9.4 FL L=9.3 H=12.5 PLT 777-3 272 TH/CMM L=130 H=440 NRBC# 0.00 TH/CMM L=0.00 H=0.00 NRBC% 0.0 /100WBC L=0.0 H=2.0 %NEUT 62.1 % %LYMP 28.2 % %MONO 6.8 % %EOS 1.4 % %BASO 0.7 % #NEUT 6.44 TH/CMM L=2.10 H=8.20 #LYMP 2.92 TH/CMM L=0.90 H=5.20 #MONO 0.70 TH/CMM L=0.16 H=1.00 #EOS 0.14 TH/CMM L=0.00 H=0.80 #BASO 0.07 TH/CMM L=0.00 H=0.20 MANUAL DIFF NOT IND N/A Active Medications Unknown or Not Available. Medications Administered During Visit Unknown or Not Available. Encounters Encounter Diagnosis Diagnosis Code Start Date Asthenia [id number] 05/25/2016 Social History Smoking Status Code Start Date End Date Former smoker [id number] Patient Decision Aids Unknown or Not Available. Discharge Instructions You were admitted to [facility] on 05/25/2016 10:50 with a principal diagnosis of Weakness You had the following tests done: CBC W/ AUTO DIFF (RFLX MAN DIFF IF IND) COMPREHENSIVE METABOLIC PANEL You were discharged from [facility] on 05/25/2016 13:49 Should you have any questions prior to discharge, please contact a member of your healthcare team. If you have left the hospital and have any questions, please contact your primary care physician. Chief Complaint and Reason For Visit Chief Complaint Date of Onset FALL INJURY Function Status Unknown or Not Available. Plan of Care Unknown or Not Available. Referral/Transition of Care Unknown or Not Available.
--- OUTSIDE RECORDS SUMMARY | 2018-03-29 10:17 | XMS REPORT | Continuity of Care Document ---
Author Author [facility] Organization [facility] Address Unknown Phone Unavailable Allergies Active Description Code Type Severity Reaction Onset Reported/Identified Relationship to Patient Clinical Status Yes No Known Allergies [id number] N /A N/A Yes No Known Drug Allergies [id number] Drug Allergy Unknown N/A 03/16/2013 Medications There is no data. Problems Date Dx Coded Attending Type Code Diagnosis Diagnosed By 08/30/2014 ERNST MTZ DO Ot 724.02 08/30/2014 ERNST MTZ DO Ot V72.63 08/30/2014 ERNST MTZ DO Ot V74.8 08/30/2014 ERNST MTZ DO Ot 724.02 08/30/2014 ERNST MTZ DO Ot V72.63 08/30/2014 ERNST MTZ DO Ot V74.8 09/12/2014 ERNST MTZ DO Ot 724.02 09/12/2014 ERNST MTZ DO Ot 724.4 09/12/2014 RENST MTZ DO Ot 736.79 09/18/2014 ERNST MTZ DO Ot 724.02 09/18/2014 ERNST MTZ DO Ot V72.63 09/18/2014 ERNST MTZ DO Ot V74.8 03/14/2015 ERNST MTZ DO Ot 724.2 Procedures There is no data. Results Test Result Range Methicillin resistant Staphylococcus aureus (MRSA) screening culture - 09:20 Methicillin resistant Staphylococcus aureus (MRSA) screening culture NEG NRG Encounters ACCT No. Visit Date/Time Discharge Status Pt. Type Provider Facility Loc./Unit Complaint [id number] 03/14/2015 08:56:00 03/14/2015 14:15:00 DIS Outpatient ERNST MTZ DO [facility] RAD [id number] 09/11/2014 07:25:00 09/12/2014 10:45:00 DIS Inpatient ERNST MTZ DO [facility] SURGICAL [id number] 08/24/2014 08:38:00 08/24/2014 23:59:59 CLS Outpatient ERNST MTZ DO [facility] PREOP [id number] 03/16/2013 09:23:00 03/16/2013 23:59:59 CLS Outpatient LATRICE GILBERT MD [facility] RAD [id number] 03/29/2018 10:30:00 PEN Preadmit ERNST MTZ DO [facility] NERVE STIMULATOR BATTERY REVISION [id number] 03/23/2018 17:05:00 Document Registration [id number] 08/29/2014 11:58:11 08/29/2014 11:58:11 DIS Outpatient [id number] 11/16/2017 10:20:02 11/16/2017 23:59:59 CLS Outpatient Kurt Navas [id number] 07/09/2017 10:36:39 07/09/2017 23:59:59 CLS Outpatient Kurt Navas [id number] 06/12/2017 10:07:08 06/12/2017 23:59:59 CLS Outpatient Kurt Navas [id number] 02/18/2017 09:27:41 02/18/2017 23:59:59 CLS Outpatient Kurt Navas [id number] 11/11/2016 09:13:48 11/11/2016 23:59:59 CLS Outpatient Kurt Navas [id number] 08/27/2016 16:51:50 08/27/2016 23:59:59 CLS Outpatient Kurt Navas [id number] 06/26/2016 14:24:47 06/26/2016 23:59:59 CLS Outpatient Kurt Navas [id number] 06/17/2016 15:01:08 06/17/2016 23:59:59 CLS Outpatient Trina Deluna [id number] 06/15/2016 13:57:11 06/15/2016 23:59:59 CLS Outpatient Frandy Janae Delatorren [id number] 12/04/2015 15:53:24 12/04/2015 23:59:59 CLS Outpatient Kurt Navas [id number] 11/21/2015 11:11:41 11/21/2015 23:59:59 CLS Outpatient HetlingerKurt [id number] 09/07/2015 18:07:43 09/07/2015 23:59:59 CLS Outpatient Charlotte Gilbert [id number] 07/25/2015 15:28:15 07/25/2015 23:59:59 CLS Outpatient Trina Deluna [id number] 05/29/2015 10:02:50 05/29/2015 23:59:59 CLS Outpatient Bernardino De La Garza [id number] 05/21/2015 21:59:27 05/21/2015 23:59:59 CLS Outpatient HetlingerKurt [id number] 01/03/2015 08:32:16 01/03/2015 23:59:59 CLS Outpatient HetlingerKurt [id number] 08/21/2014 21:09:31 08/21/2014 23:59:59 CLS Outpatient HetlingerKurt [id number] 08/21/2014 21:01:23 08/21/2014 23:59:59 CLS Outpatient HetlingerKurt [id number] 08/21/2014 10:37:49 08/21/2014 23:59:59 CLS Outpatient HetlingerKurt [id number] 08/08/2014 11:04:11 08/08/2014 23:59:59 CLS Outpatient HetlingerKurt [id number] 04/24/2014 11:19:26 04/24/2014 23:59:59 CLS Outpatient HetlingerKurt [id number] 04/10/2014 10:18:04 04/10/2014 23:59:59 CLS Outpatient HetlingerKurt [id number] 11/28/2013 11:01:46 11/28/2013 23:59:59 CLS Outpatient HetlingerKurt [id number] 11/15/2017 08:43:41 Document Registration [id number] 11/15/2017 08:34:35 Document Registration
[2018-03-29] MEDS ORDERED: fentaNYL INJECTION 100 MCG/2 ML AMP ONE (11:09)
[2018-03-29] MEDS ORDERED: MIDAZOLAM 2 MG/2 ML (VERSED) VIAL ONE (11:22)
[2018-03-29] MEDS ORDERED: ROCURONIUM 10 MG/ML 5 ML SYRINGE IV ONE (11:59)
[2018-03-29] MEDS ORDERED: SEVOFLURANE (ULTANE) 15 ML INHAL SOLN ONE ×4 (11:59→12:00)
[2018-03-29] MEDS ORDERED: proPOfol 200 MG/20 ML (DIPRIVAN) VIAL IV ONE (11:59)
[2018-03-29] MEDS ORDERED: LIDOCAINE PF 2% 5 ML (XYLOCAINE) VIAL ONE (11:59)
[2018-03-29] MEDS ORDERED: ONDANSETRON 4 MG/2 ML (SDV) Z0FRAN ONE (11:59)
[2018-03-29] MEDS ORDERED: DEXAMETHASONE 10 MG/ML (DECADRON) 1 ML VIAL ONE (11:59)
[2018-03-29] MEDS ORDERED: MEPERIDINE (DEMEROL) INJ 50 MG/ML IVP PRN (12:00)
[2018-03-29] MEDS ORDERED: ONDANSETRON 4 MG/2 ML (SDV) Z0FRAN IVP PRN (12:00)
[2018-03-29] MEDS: morphine INJ 10 MG/ML 1ML (SYR OR VIAL) IVP PRN ×2 (12:05→12:12)
--- NOTE | 2018-03-29 12:13 | Discharge Inst-Simple/Standard ---
Discharge Inst-Standard Patient Instructions/Follow Up Plan of Care/Instructions/FU: follow up in clinic in 2 weeks call or return sooner if needed keep incision covered and dry Activity as Tolerated: Yes Discharge Diet: No Restrictions Return to [facility] For: fever chills or incisional drainage MAR [place] Mar 29, 2018 12:13
[2018-03-29] MEDS: HYDROmorphone 1 MG/ML (DILAUDID) 1 ML SYRINGE IV PRN ×2 (12:22→12:32)
[2018-03-29 13:00] VITALS: BP 96/44
[2018-03-29 13:01] VITALS: BP 96/44
[2018-03-29 13:30] VITALS: BP 110/49
[2018-03-29] MEDS ORDERED: NEOSTIGMINE 1 MG/ML 5 ML SYRINGE ONE (13:31)
[2018-03-29] MEDS ORDERED: GLYCOPYRROLATE 0.2 MG/ML (ROBINUL) 2 ML VIAL ONE (13:31)
[2018-03-29] MEDS ORDERED: HYDR-753 PO (13:59)
[2018-03-29 14:00] VITALS: BP 111/86
[2018-03-29] MEDS ORDERED: fentaNYL INJECTION 100 MCG/2 ML AMP IVP PRN (14:00)
[2018-03-29] MEDS ORDERED: HYDROcodone/APAP 7.5 MG/325 MG (LORTAB, LORCET PLUS) TABLET PO PRN (14:00)
[2018-03-29] MEDS ORDERED: HYDROcodone/APAP 7.5 MG/325 MG (LORTAB, LORCET PLUS) TABLET PO ONE (14:03)
[2018-03-29 14:20] VITALS: BP 111/86
--- NOTE | 2018-03-29 14:21 | Anesthesia-General Post-Op ---
General Patient Condition Mental Status/LOC: Same as Preop Cardiovascular: Satisfactory Nausea/Vomiting: Absent Respiratory: Satisfactory Pain: Controlled Complications: Absent Post Op Complications Complications None Follow Up Care/Instructions Patient Instructions None needed. Anesthesia/Patient Condition Patient Condition Patient is doing well, no complaints, stable vital signs, no apparent adverse anesthesia problems. No complications reported per nursing. MIHAELA GONZALES CRNA Mar 29, 2018 14:20
--- NOTE | 2018-03-29 19:29 | OPERATIVE REPORT ---
DATE OF SERVICE: 03/29/2018 SURGEON: Wei Gomez DO INCIDENT HANDLER: DEJUAN Garcia This is a medically necessary procedure. Assistance was necessary for retraction of vital neurovascular structures. Without an front end assistant, the procedure would not be possible. PREOPERATIVE DIAGNOSIS: Failure of internal hardware. POSTOPERATIVE DIAGNOSIS: Failure of internal hardware. PROCEDURE PERFORMED: Removal and replacement of pulse generator battery. COMPLICATIONS: None. SPECIMEN SENT: None. DRAINS PLACED: None. ANESTHESIA: General endotracheal tube anesthesia with local anesthetic. HISTORY OF PRESENT ILLNESS: The patient is a very pleasant 52-year-old female with a history of prior thoracic spinal cord stimulator. Her battery went on to and she opted to have it replaced with a non-rechargeable pulse generator. She understood the risks and benefits. DESCRIPTION OF PROCEDURE: The patient was identified by name on wrist band in preoperative holding area. Her operative site was signed, consent was signed. SCDs were placed. Antibiotics were started. She was taken to the operating room theater and placed under general endotracheal tube anesthesia and transferred to the operating room table in the prone position. She was prepped and draped in usual sterile fashion. Formal timeout was conducted. Incision was then made over the old scar line. We dissected out the pocket, removed the pulse generator, detached the leads. I then obtained a new [employer] non-rechargeable pulse generator, which was quite a bit bigger. I reattached the leads. I tested the connection with the [employer] rep and the connection was good. I then enlarged the pulse generator subcutaneous pocket to accommodate this larger battery. I then placed the battery in the wound. I irrigated the wound. I closed the wound in my usual layered fashion utilizing 0 Vicryl followed by 2-0 Vicryl followed by cielo for skin. I applied dressings, took the patient in the supine position to the PACU where she awoke without incident. She tolerated the procedure well. The plan at this time is to discharge the patient today. I will see her back in 2 weeks. She knows to keep her wound clean and dry, change dressings daily. 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
== END 2018-03-29 14:25 | disposition home or self-care (01) ==
LOC: SDC 09:15
PROVIDERS: ATTEND Orthopaedic Surgery
DX: Z46.2 Encounter for fitting and adjustment of other devices related to nervous system and special senses (principal)